=== PATIENT | male | born 1935 | race Caucasian/White ===

== ENCOUNTER 2016-11-03 22:05 | Inpatient (IN) | payer BC, MEDICARE ==
--- NOTE | 2016-11-03 23:01 | ED ---
Chest Pain HPI - General Chief Complaint: Chest Pain Stated Complaint: Fall/left rib pain Time Seen by Provider: 11/03/16 22:17 Source: patient Mode of arrival: wheelchair Limitations: no limitations - History of Present Illness Initial Comments: This patient is an 81-year-old man who presents to be evaluated for left-sided chest pain. The patient states this is been going on since "about a week after New Year'" and seems to be intermittent, occurring mainly when he moves or someone presses on his left chest. The pain is in the left midaxillary and left anterior chest over the lower ribs. The patient states that he did have a fall, after Laura and that he had injured his left shoulder in the fall, and has been having pain there. He did not note any pain at the time of the fall but states that this started a number of days after. The patient has not had any anginal symptoms, including no dyspnea, diaphoresis, nausea or vomiting , palpitations or syncope. The patient states that he has been having intermittent cough. MD Complaint: chest pain -: week(s) Onset: during rest Pain Location: left chest Severity: severe Quality: sharp Consistency: intermittent Improves With: remaining still Worsens With: palpation, movement Context: other (Fall) Other Symptoms: cough Treatments Prior to Arrival: none - Related Data Home Medications Medication Instructions Recorded Confirmed Atenolol [Tenormin] 50 mg PO DAILY 11/03/16 11/03/16 Lovastatin [Mevacor] 40 mg PO DAILY 11/03/16 11/03/16 glipiZIDE [Glucotrol] 10 mg PO BID 11/03/16 11/03/16 Allergies Allergy/AdvReac Type Severity Reaction Status Date / Time No Known Allergies Allergy Verified 11/03/16 23:50 Review of Systems ROS Statement: Those systems with pertinent positive or pertinent negative responses have been documented in the HPI. ROS Other: All systems not noted in ROS Statement are negative. Constitutional: Denies: fever, chills Respiratory: Reports: as per HPI, cough. Denies: dyspnea, wheezes, hemoptysis Cardiovascular: Reports: as per HPI, chest pain. Denies: palpitations, dyspnea on exertion, orthopnea, edema, syncope Gastrointestinal: Denies: abdominal pain, nausea, vomiting Genitourinary: Denies: dysuria, hematuria Musculoskeletal: Denies: back pain Skin: Denies: rash Neurological: Denies: headache, weakness EKG Findings - EKG Results: EKG: interpreted by HEYDID, sinus rhythm (With few PVCs, rate approximately 87 he p.m.) - Blocks, [place], Hypertrophy, ST Abn: Chamber hypertrophy or enlargement: left ventricular hypertrophy or enlargement (LVE) Repolarization changes or abnormalities: early repolarization due to LVH - [place], Pacemaker, Normal: Myocardial infarction: inferior [place] (old age indeterminate) Past Medical History Past Medical History: Diabetes Mellitus, Hyperlipidemia, Hypertension Additional Past Medical History / Comment(s): bladder cancer 1998, History of Any Multi-Drug Resistant Organisms: None Reported Past Surgical History: Bladder Surgery, Coronary Bypass/CABG Additional Past Surgical History / Comment(s): AAA Past Psychological History: No Psychological Hx Reported Smoking Status: Never smoker Past Alcohol Use History: None Reported Past Drug Use History: None Reported General Exam Limitations: no limitations General appearance: alert, in no apparent distress Head exam: Present: atraumatic, normocephalic Eye exam: Present: normal appearance. Absent: scleral icterus, conjunctival injection ENT exam: Present: normal exam Neck exam: Present: normal inspection, full ROM Respiratory exam: Present: rhonchi, chest wall tenderness. Absent: respiratory distress, wheezes, stridor, accessory muscle use, decreased breath sounds Cardiovascular Exam: Present: regular rate, normal rhythm, normal heart sounds. Absent: systolic murmur, diastolic murmur, rubs, gallop GI/Abdominal exam: Present: soft. Absent: distended, tenderness, guarding, rebound, mass Extremities exam: Present: normal inspection, normal capillary refill. Absent: pedal edema, calf tenderness Back exam: Present: normal inspection. Absent: CVA tenderness (R), CVA tenderness (L) Neurological exam: Present: alert Skin exam: Present: warm, dry, intact, normal color. Absent: rash, cyanosis, diaphoretic, erythema Course Vital Signs 11/03/16 11/04/16 11/04/16 22:10 01:51 02:14 Temperature 100.6 F H 100.4 F H Pulse Rate 87 80 83 Respiratory 18 26 H Rate Blood Pressure 171/74 139/63 O2 Sat by Pulse 92 L 88 L Oximetry 11/04/16 02:28 Temperature Pulse Rate 89 Respiratory Rate Blood Pressure O2 Sat by Pulse Oximetry Disposition Clinical Impression: Pneumonia, Elevated d-dimer Disposition: ADMITTED IP TO THIS HOSP Condition: Serious
[2016-11-03 23:17] LABS: Basophils # (A) 0.1 k/uL (0-0.2); Basophils % (A) 0 %; CH 30.8; CHCM 34.1; Eosinophils # (A) 0.1 k/uL (0-0.7); Eosinophils % (A) 1 %; HCT 43.4 % (39.0-53.0); HDW 2.34; HGB 14.6 gm/dL (13.0-17.5); Luc # (Auto) 0.16; Luc % (Auto) 1; Lymphocytes # (A) 0.8 k/uL (1.0-4.8); Lymphocytes % (A) 5 %; MCH 30.7 pg (25.0-35.0); MCHC 33.7 g/dL (31.0-37.0); MCV 90.9 fL (80.0-100.0); Mean Platelet Volume 7.7; Monocytes # (A) 0.7 k/uL (0-1.0); Monocytes % (A) 5 %; Neutrophils # (A) 14.4 k/uL (1.3-7.7); Neutrophils % (A) 88 %; RBC 4.77 m/uL (4.30-5.90); RDW 13.3 % (11.5-15.5); WBC 16.3 k/uL (3.8-10.6); WBC (Perox) 16.09
[2016-11-03 23:24] LABS: ALT 37 U/L (21-72); AST 20 U/L (17-59); Alkaline Phosphatase 59 U/L (38-126); Amylase <30 U/L (30-110); Anion Gap 10 mmol/L; Blood Urea Nitrogen 30 mg/dL (9-20); Calcium 9.4 mg/dL (8.4-10.2); Carbon Dioxide 23 mmol/L (22-30); Chloride 101 mmol/L (98-107); Glucose 266 mg/dL (74-99); Magnesium 1.6 mg/dL (1.6-2.3); Non-African American GFR(MDRD) 49 (>60 ml/min/1.73 sqM); Potassium 4.9 mmol/L (3.5-5.1); Sodium 134 mmol/L (137-145); Total Bilirubin 0.9 mg/dL (0.2-1.3); Total Protein 6.5 g/dL (6.3-8.2)
[2016-11-03 23:38] LABS: INR 1.1 (<1.1); Partial Thromboplastin Time 23.5 sec (22.0-30.0)
[2016-11-03 23:46] LABS: Creatine Kinase MB 0.4 ng/mL (0.0-2.4); Troponin I 0.024 ng/mL (0.000-0.034)
--- NOTE | 2016-11-03 23:48 | XR ---
EXAMINATION TYPE: XR chest 1V portable DATE OF EXAM: 11/03/2016 11:01 PM COMPARISON: None. HISTORY: History of chest pain, and left-sided rib pain after fall. TECHNIQUE: Single frontal view of the chest is obtained. FINDINGS: Mild chronic lung changes are suggested. There is suggestion of mild left-sided pleural effusion and left basilar lung infiltrates and atelectasis. There is no pneumothorax. There is mild cardiomegaly and postsurgical changes of sternotomy and tort uous thoracic aorta with atherosclerotic calcification. The cardiac silhouette size is within normal limits. There is slight irregularity in the left seventh rib posterior laterally and is questionable for acut e nondisplaced fracture. IMPRESSION: 1. Mild left-sided pleural effusion and left basilar lung infiltrate and atelectasis. 2. Cardiomegaly and sternotomy. 3. No definite pneumothorax is noted. 4. Questionable nondisplaced fracture of left seventh rib in the posterior lateral aspect.
[2016-11-04] MEDS ORDERED: LEVOFLOXACIN 750MG-D5W PMX 750 MG in DEXTROSE/WATER 1 150ML.BAG IVPB STA (00:50)
[2016-11-04] MEDS ORDERED: ENOXAPARIN 80 MG/0.8 ML SYRINGE SQ STA (01:05)
[2016-11-04] MEDS ORDERED: IPRATROPIUM-ALBUTEROL 3 ML NEB INHALATION STA (01:56)
[2016-11-04] MEDS ORDERED: ALBUTEROL NEBULIZED 2.5 MG/3 ML INHALATION PRN (02:11)
[2016-11-04] MEDS ORDERED: PNEUMONIA PROTOCOL UTILIZED 1 EACH MISC PO PRN (02:11)
[2016-11-04] MEDS ORDERED: SODIUM CHLORIDE 0.9% 1,000 ML IV SCH (02:15)
[2016-11-04] MEDS ORDERED: LEVOFLOXACIN 750MG-D5W PMX 750 MG in DEXTROSE/WATER 1 150ML.BAG IVPB SCH (02:15)
--- NOTE | 2016-11-04 02:35 | XR ---
EXAMINATION TYPE: XR ribs LT DATE OF EXAM: 11/03/2016 11:24 PM COMPARISON: 11/03/2016 chest x-ray HISTORY: History of fall complains of left upper anterior rib pain. TECHNIQUE: 3 radiographs of left ribs were obtained. FINDINGS: There is generalized osteopenia. Previously noted fracture changes of left seventh rib are not well demonstrated in this study probably due to generalized osteopenia. No pneumothorax is noted. Postsurgical changes of sternotomy are present. There is suggestion of mild left-sided pleural effusion and left basilar lung infiltrate. IMPRESSION: 1. Previously seen questionable left seventh rib fracture is not well demonstrated in these left rib radiographs. 2. Mild left-sided pleural effusion and left basilar lung infiltrates are suggested. 3. Sternotomy changes.
[2016-11-04] MEDS ORDERED: MORPHINE SULFATE 4 MG/ML SYRINGE IV PRN (03:10)
[2016-11-04] MEDS: HYDROcodone/APAP 5-325MG 1 EACH TAB PO PRN ×2 (03:45→08:37)
[2016-11-04 04:26] LABS: Glucose,Whole Blood 214 mg/dL (75-99)
[2016-11-04 07:02] LABS: Glucose,Whole Blood 191 mg/dL (75-99)
[2016-11-04] MEDS: ATENOLOL 50 MG TAB PO SCH (08:01)
[2016-11-04] MEDS ORDERED: glipiZIDE 10 MG TAB PO SCH (09:00)
[2016-11-04] MEDS ORDERED: ATORVASTATIN 20 MG TAB PO SCH (09:00)
[2016-11-04 10:28] LABS: Appearance,Urine Clear (Clear); Bilirubin,Urine Negative (Negative); Glucose,Urine (UA) 1+ (Negative); Ketones,Urine Negative (Negative); Leukocyte Esterase,Urine Negative (Negative); Mucus,Urine Rare /hpf; Nitrite,Urine Negative (Negative); Particle Count 5261; Protein,Urine 3+ (Negative); Specific Gravity,Urine 1.017 (1.001-1.035); Squamous Epithelial Cell,Urine 1 /hpf (0-4); UA Billing (MACRO vs. MICRO) MICRO; Urobilinogen,Urine <2.0 mg/dL (<2.0); WBC,Urine 1 /hpf (0-5)
--- NOTE | 2016-11-04 11:33 | NM ---
EXAMINATION TYPE: NM pul vent and perfuse DATE OF EXAM: 11/04/2016 11:11 AM COMPARISON: Radiographs 11/03/2016 HISTORY: 81-year-old male chest pain, cough, wheezing, rule out PE TECHNIQUE: Utilizing inhalation of 65.6 mCi Tc 99m DTPA aerosol and intravenous injection of 5.29 mC i of Tc 99m MAA, ventilation and perfusion images are acquired post injection in multiple projections . FINDINGS: Diminished matched ventilation and perfusion within the right apex and marked diminished ventilation and perfusion throughout the left lung. No clear mismatched perfusion defect seen. IMPRESSION: Unusual VQ scan pattern. Suspect low probability for pulmonary embolus. There is markedly reduced ever tilation and perfusion throughout the entire left lung possibly due to splinting and hypoventilation in the setting of left chest wall pain/rib fracture. Clinically correlate as to the need for further imaging evaluation.
[2016-11-04 12:33] LABS: Glucose,Whole Blood 178 mg/dL (75-99)
[2016-11-04] MEDS: SODIUM CHLORIDE 0.9% 1,000 ML IV SCH (16:27)
[2016-11-04 17:07] LABS: Glucose,Whole Blood 160 mg/dL (75-99)
[2016-11-04] MEDS ORDERED: Acetaminophen-Codeine 300-30mg TAB PO PRN ×2 (17:46)
[2016-11-04] MEDS: glipiZIDE 10 MG TAB PO SCH (18:06)
--- NOTE | 2016-11-04 19:35 | HP ---
DATE OF ADMISSION: 11/04/2016 PRESENTING COMPLAINT: Short of breath, cough. HISTORY OF PRESENTING COMPLAINT: This is a very pleasant 81-year-old patient of Dr. Cortés whose chronic stable medical conditions include diabetes, hypertension, hyperlipidemia, patient with bladder cancer in the past. Patient took a fall on his left shoulder and has seen Dr. Cortés who referred him to Dr. Lin. Dr. Lin ruled out any fracture. Since the fall the patient still continues to have pain in the left shoulder, not able to move his left arm. Patient now is not really feeling well. Decreased appetite low-grade fever, cough with phlegm. Found to have pneumonia. The patient also was told he has a rib fracture and point tenderness is reproducible. Patient's daughter at the bedside. REVIEW OF SYSTEMS: CONSTITUTIONAL: Fevers, weak and tired. HEENT: None. RESPIRATORY: As above. CARDIOVASCULAR: None. GASTROINTESTINAL: None. GENITOURINARY: None. MUSCULOSKELETAL: As above. DERMATOLOGICAL: None. HEMATOLOGICAL: None. LYMPHATIC: None. PSYCHIATRY: None. NEUROLOGICAL: None. Past medical history of diabetes type 2, hypertension, hyperlipidemia, bladder cancer. PAST SURGICAL HISTORY: Adenoidectomy, appendectomy, coronary artery bypass, tonsillectomy. SOCIAL HISTORY: Never smoked. No alcohol, retired, . Family history of esophageal cancer. HOME MEDICATIONS: 1. Mevacor 80 mg q.h.s. 2. Glucotrol 10 mg b.i.d. 3. Tenormin 50 mg daily. 4. Aspirin 325 mg daily. ALLERGIES: None. On examination, vitals on presentation: Temperature 100.6, pulse 87, respirations 18 to 26, blood pressure 135/63, pulse ox 88% on 3-L. GENERAL APPEARANCE: Average build, sitting up, tired appearing. EYES: Pupils equal. Conjunctivae normal. HEENT: External appearance of nose and ears normal. NECK: JVD not raised. Mass not palpable. RESPIRATORY: Effort normal. LUNGS: Slightly decreased breath sounds on the left side. CARDIOVASCULAR: First and second sounds normal. No edema. ABDOMEN: Soft, nontender. Liver and spleen not palpable. LYMPHATIC: No lymph nodes palpable in neck or axillae. PSYCHIATRY: Alert and oriented x3. Mood and affect normal. NEUROLOGICAL: Pupils equal. Cranial nerves grossly intact. Power and sensation grossly intact. MUSCULOSKELETAL: Limited range of motion of the left shoulder. He also has got point tenderness in the lateral clavicular line around the seventh rib area. PSYCHIATRY: Alert and oriented x3. Mood and affect normal. INVESTIGATIONS: White count 16.3, hemoglobin 14.6, d-dimer 6.85, potassium 4.9, BUN 30, creatinine 1.39. Accu-Cheks are noted. Urine protein 3+. Chest x-ray, possible left-sided infiltrate. ASSESSMENT: 1. Left lower lobe pneumonia, probably from splinting. 2. Suspect left 7th rib fracture, undisplaced. 3. Suspect left shoulder rotator cuff injury from fall. Fracture was ruled out by follow up with Dr. Lin in the office. 4. Possibly chronic kidney disease, stage III from diabetic nephropathy. 5. Essential hypertension. 6. Hyperlipidemia. PLAN: We will hydrate the patient and see if the renal function improves. We will also do a renal ultrasound. Patient will be given IV antibiotics. I spoke to Fatuma from [facility]. They were considering doing physical therapy if symptoms did not improve. I really cannot give NSAIDs because of the renal failure. The Stout made him a bit loopy that he received. Will try Tylenol 3 around the clock. Other medication and treatment plan to continue. Care was discussed with the patient and daughter at the bedside.
--- NOTE | 2016-11-04 20:01 | US ---
EXAMINATION TYPE: US kidneys/renal and bladder DATE OF EXAM: 11/04/2016 4:49 PM COMPARISON: NONE CLINICAL HISTORY: renal failure, history of bladder cancer. EXAM MEASUREMENTS: Right Kidney: 12.4 x 5.7 x 5.7cm Left Kidney: 11.2 x 5.8 x 5.2cm ANATOMY: Right Kidney: inferior pole partially obscured by bowel gas Left Kidney: inferior pole obscured by bowel gas Bladder: Negative as seen. There is no evidence for hydronephrosis at this point in time. No nephrolithiasis is seen. No john s are identified. The urinary bladder is anechoic. Bilateral ureteral jets are seen. IMPRESSION: NEGATIVE FOR OBSTRUCTIVE UROPATHY.
[2016-11-04 21:37] LABS: Glucose,Whole Blood 128 mg/dL (75-99)
[2016-11-04] MEDS ORDERED: ENOXAPARIN 80 MG/0.8 ML SYRINGE SQ SCH (22:00)
[2016-11-05] MEDS: SODIUM CHLORIDE 0.9% 1,000 ML IV SCH ×2 (00:39→14:07)
[2016-11-05] MEDS ORDERED: LEVOFLOXACIN 750MG-D5W PMX 750 MG in DEXTROSE/WATER 1 150ML.BAG IVPB SCH (06:00)
[2016-11-05 07:22] LABS: Glucose,Whole Blood 138 mg/dL (75-99)
[2016-11-05] MEDS: glipiZIDE 10 MG TAB PO SCH (08:04)
[2016-11-05] MEDS: ATENOLOL 50 MG TAB PO SCH (08:04)
[2016-11-05 08:18] VITALS: BP 183/84; PULSE 63; RESP 19; TEMP 98.2
[2016-11-05] MEDS ORDERED: ENOXAPARIN 40 MG/0.4 ML SYRINGE SQ SCH (09:00)
[2016-11-05 09:25] LABS: Anion Gap 7 mmol/L; Blood Urea Nitrogen 28 mg/dL (9-20); Calcium 8.9 mg/dL (8.4-10.2); Carbon Dioxide 24 mmol/L (22-30); Chloride 103 mmol/L (98-107); Glucose 148 mg/dL (74-99); Non-African American GFR(MDRD) 53 (>60 ml/min/1.73 sqM); Potassium 4.9 mmol/L (3.5-5.1); Sodium 134 mmol/L (137-145)
[2016-11-05 11:55] LABS: Glucose,Whole Blood 167 mg/dL (75-99)
[2016-11-05] MEDS ORDERED: ATORVASTATIN 20 MG TAB PO SCH (21:00)
--- NOTE | 2016-11-06 12:38 | DS ---
DATE OF ADMISSION: 11/04/2016 DATE OF DISCHARGE: 11/05/2016 FINAL DIAGNOSES: 1. Left-sided pneumonia, suspect gram-negative organism. 2. Left rib fracture from a recent fall, nondisplaced. 3. Possible rotator cuff injury from recent fall. 4. Chronic kidney disease, stage III, from diabetic nephropathy and possible hypertensive nephrosclerosis. 5. Essential hypertension. 6. Hyperlipidemia. HOSPITAL COURSE: This patient presented with cough and sputum, found to have left-sided pneumonia. Patient recently had a fall to the left shoulder. He had seen Dr. Lin. Fracture was ruled out but it looked like the patient had a rotator cuff injury. He has unable to move his left arm. The patient also got a left rib fracture. Pulmonary symptoms are greatly improved. I spoke to Dr. Lin's office. The patient is to have outpatient physical therapy. Symptoms are greatly improved. Care was discussed with the patient at discharge. On exam, lungs are clear. Cardiovascular, first and second heart sounds are normal. DISCHARGE MEDICATIONS: 1. Tenormin 50 mg p.o. daily. 2. Mevacor 80 mg p.o. at bedtime . 3. Glucotrol 10 mg p.o. b.i.d. 4. Tylenol No. 3, 1 tablet orally every 6 p.r.n. for pain. 5. Aspirin 81 mg day. 6. Ceftin 500 mg p.o. daily 10 tablets. Follow up with Dr. Cortés on 11/18/2016, follow up with Dr. Lin on 11/09/2016. Outpatient physical therapy with Dr. Lin's office. DISCHARGE TIME: More than 35 minutes.
== END 2016-11-05 14:10 | disposition home or self-care (01) | DRG 178 ==
LOC: EC 22:05 → 4MS4W 11-04 02:41
PROVIDERS: ADMIT Hospitalist; ATTEND Hospitalist
DX: J15.6 Pneumonia due to other Gram-negative bacteria (principal); S22.32XA Fracture of one rib, left side, initial encounter for closed fracture; E11.21 Type 2 diabetes mellitus with diabetic nephropathy; N18.3 Chronic kidney disease, stage 3 (moderate); I12.9 Hypertensive chronic kidney disease with stage 1 through stage 4 chronic kidney disease, or unspecified chronic kidney disease; S46.002A Unspecified injury of muscle(s) and tendon(s) of the rotator cuff of left shoulder, initial encounter; I25.10 Atherosclerotic heart disease of native coronary artery without angina pectoris; E11.22 Type 2 diabetes mellitus with diabetic chronic kidney disease; E78.5 Hyperlipidemia, unspecified; I71.4 Abdominal aortic aneurysm, without rupture; Z79.82 Long term (current) use of aspirin; Z79.84 Long term (current) use of oral hypoglycemic drugs; Z79.899 Other long term (current) drug therapy; Z85.51 Personal history of malignant neoplasm of bladder; Z95.1 Presence of aortocoronary bypass graft; W19.XXXA Unspecified fall, initial encounter
CPT/HCPCS: 36415; 71010; 76770; 78582; 80048; 80053; 81001; 82150; 82550; 82553; 83690; 83735; 84484; 85025; 85379; 85610; 85730; 87040; 87086; 93005; 94640; 96365; 96372; 99285

== ENCOUNTER → 2017-08-23 | Outpatient (CLI) | payer MEDICARE ==
[2017-08-23 12:44] LABS: Appearance,Urine Clear (Clear); Bilirubin,Urine Negative (Negative); Glucose,Urine (UA) 2+ (Negative); Ketones,Urine Negative (Negative); Leukocyte Esterase,Urine Negative (Negative); Mucus,Urine Rare /hpf; Nitrite,Urine Negative (Negative); PH, Urine 6.5 (5.0-8.0); Particle Count 933; Protein,Urine 2+ (Negative); UA Billing (MACRO vs. MICRO) MICRO; Urobilinogen,Urine <2.0 mg/dL (<2.0); WBC,Urine 1 /hpf (0-5)
[2017-08-23 12:51] LABS: Potassium 5.4 mmol/L (3.5-5.1)
[2017-08-23 12:58] LABS: Aty Lym Flag Slight; CH 30.8; CHCM 32.5; HDW 2.48; MCH 30.2 pg (25.0-35.0); MCHC 31.7 g/dL (31.0-37.0); MCV 95.2 fL (80.0-100.0); Mean Platelet Volume 7.8; RBC 4.62 m/uL (4.30-5.90); RDW 13.2 % (11.5-15.5); WBC 7.6 k/uL (3.8-10.6)
[2017-08-23 13:40] LABS: Add Differential Manual Differential
[2017-08-23 13:42] LABS: Band Neutrophils % 1 %; Manual Review Performed; Nucleated Red Blood Cells 0 /100 WBC (0-0); Total Cells Counted 100
== END | disposition home or self-care (01) ==
LOC: LABPAT 12:11
PROVIDERS: ATTEND Surgery
DX: Z01.812 Encounter for preprocedural laboratory examination (principal); M79.605 Pain in left leg
CPT/HCPCS: 36415; 80051; 81001; 82565; 84520; 85025

== ENCOUNTER → 2017-10-03 | Outpatient (CLI) | payer MEDICARE ==
[2017-10-03 14:23] LABS: Potassium 5.1 mmol/L (3.5-5.1)
[2017-10-03 14:26] LABS: Aty Lym Flag Slight; CH 30.5; CHCM 32.4; HCT 42.5 % (39.0-53.0); HDW 2.43; HGB 13.7 gm/dL (13.0-17.5); MCH 30.6 pg (25.0-35.0); MCHC 32.3 g/dL (31.0-37.0); MCV 94.6 fL (80.0-100.0); Mean Platelet Volume 8.8; RDW 14.2 % (11.5-15.5); WBC 6.6 k/uL (3.8-10.6)
[2017-10-03 14:39] LABS: Appearance,Urine Clear (Clear); Bilirubin,Urine Negative (Negative); Glucose,Urine (UA) Negative (Negative); Ketones,Urine Negative (Negative); Leukocyte Esterase,Urine Negative (Negative); Nitrite,Urine Negative (Negative); Particle Count 332; Protein,Urine 1+ (Negative); RBC,Urine <1 /hpf (0-5); Specific Gravity,Urine 1.005 (1.001-1.035); UA Billing (MACRO vs. MICRO) MICRO; Urobilinogen,Urine <2.0 mg/dL (<2.0); WBC,Urine <1 /hpf (0-5)
[2017-10-03 15:50] LABS: Add Differential Manual Differential
[2017-10-03 15:53] LABS: Band Neutrophils % 1 %; Manual Review Performed; Nucleated Red Blood Cells 0 /100 WBC (0-0); Total Cells Counted 100
== END | disposition home or self-care (01) ==
LOC: LABPAT 13:46
PROVIDERS: ATTEND Surgery
DX: Z01.812 Encounter for preprocedural laboratory examination (principal); I70.213 Atherosclerosis of native arteries of extremities with intermittent claudication, bilateral legs
CPT/HCPCS: 36415; 80051; 81001; 82565; 84520; 85025

== ENCOUNTER 2017-10-04 09:49 | Day surgery (SDC) | payer MEDICARE ==
[2017-09-30 13:08] VITALS: BMI 21.7
[~2017-10-04 09:49] MED LIST: SODIUM CHLORIDE 0.9% 1,000 ML in EMPTY BAG 1 BAG IV ONE
[2017-10-04 10:24] VITALS: RESP 16; TEMP 98.2
[2017-10-04 10:26] LABS: Glucose,Whole Blood 130 mg/dL (75-99)
[2017-10-04] MEDS ORDERED: SODIUM CHLORIDE 0.9% 1,000 ML IV SCH (12:30)
[2017-10-04] MEDS ORDERED: LIDOCAINE 2% INJ 20 MG/ML SQ ONE (12:34)
[2017-10-04] MEDS ORDERED: MIDAZOLAM 2 MG/2 ML VIAL IVP ONE (12:35)
[2017-10-04] MEDS ORDERED: IODIXANOL 320 MG/ML 100 ML INTRAARTER ONE (12:55)
[2017-10-04] MEDS ORDERED: traMADol 50 MG TAB PO PRN (13:08)
[2017-10-04] MEDS ORDERED: hydrALAZINE HCL 20 MG/ML 1 ML VIAL ONE (13:13)
[2017-10-04] MEDS ORDERED: hydrALAZINE HCL 20 MG/ML 1 ML VIAL IVP STA (13:30)
[2017-10-04] MEDS ORDERED: HYDROcodone/APAP 5-325MG 1 EACH TAB PO STA (13:30)
--- NOTE | 2017-10-04 13:41 | IR ---
EXAMINATION TYPE: IR angio abdominal w runoff DATE OF EXAM: 10/04/2017 COMPARISON: NONE HISTORY: Peripheral vascular occlusive disease. Fluoroscopy was provided to the referring clinician. See dictated report from cardiology.
[2017-10-04 16:56] VITALS: PULSE 56
[2017-10-04 17:37] VITALS: BP 155/65
[2017-10-04] MEDS ORDERED: glipiZIDE 10 MG TAB PO SCH (21:00)
[2017-10-04] MEDS ORDERED: ATENOLOL 25 MG TAB PO SCH (21:00)
[2017-10-04] MEDS ORDERED: ATORVASTATIN 20 MG TAB PO SCH (21:00)
[2017-10-05] MEDS ORDERED: ASPIRIN 325 MG TAB PO SCH (09:00)
[2017-10-05] MEDS ORDERED: CHOLECALCIFEROL 1,000 UNIT TAB PO SCH (12:00)
--- NOTE | 2017-10-21 10:18 | P.OP ---
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 He underwent arterial dopplers which demonstrated severe bilateral LE disease. He also started experiencing pain at night. Prior to rest pain he stated that he could ambulate about 1 block before getting calf pain. Operative Findings: Aorta: No hemodynamically significant disease Iliac: Right RIKKI patent with mild athersclerotic disease, Internal iliac artery patent with mild disease, external iliac with mild disease without hemodynamically significance. Left common, internal and external iliac artery patent without significant disease. Femoral: Bilateral common femoral arteries are patent with evidence of previous bypasses, bilateral superficial femoral arteries are occluded, patent profunda bilaterally. Large amount of collaterals throughout mid thigh without reconstitution until below knee peroneal on the right. Popliteal: right popliteal artery occlusion, left popliteal artery filling noted with collateral vessels Tibial-peroneal trunk: right TPT occluded with only takeoff of peroneal noted. Sparse filling of anterior and posterior arteries. One vessel runoff to the ankle which is the peroneal artery. There is collateral filling of the anterior tibial artery at the foot. Left TPT with moderate disease but with three vessel takeoff. anterior tibial, posterior tibial arteries with moderate to severe athersclerotic disease to the ankle which is difficult to delineate. Description of Procedure: After written and informed consent was obtained from the patient and all risks, benefits were described. The patient was brought to the photo lab specialist and laid in a supine position. The area of the groins were prepped and draped in the usual fashion. A timeout was performed with all parties in agreement. Utilizing ultrasound the left common femoral artery was visualized and shown to be patent. Seldinger technique was then used and a 5 malay sheath was placed. This was followed with a .035 glidewire and then a pigtail catheter which was placed into the aorta. Aortogram followed by selective right lower extremity angiograms were obtained after up and over catheter was placed. Once completed the catheter was removed and selective left lower extremity angiogram was obtained via existing sheath. All guidewires and sheaths were removed and pressure was placed for hemostasis. The access site was cleansed and dressing was placed. The patient tolerated the procedure well and was sent to recovery. Patient will need femoral to anterior tibial or peroneal artery bypass with cryovein on the right and femoral-tibial bypass on the left.
== END 2017-10-04 19:43 | disposition home or self-care (01) ==
LOC: CATHCVL 09:49 → 6SEL 12:58 → CATHCVL 12:58
PROVIDERS: ATTEND Surgery
DX: I77.9 Disorder of arteries and arterioles, unspecified (principal); I70.221 Atherosclerosis of native arteries of extremities with rest pain, right leg; I71.4 Abdominal aortic aneurysm, without rupture; K37 Unspecified appendicitis; C67.9 Malignant neoplasm of bladder, unspecified; E11.9 Type 2 diabetes mellitus without complications; I51.9 Heart disease, unspecified; Z95.1 Presence of aortocoronary bypass graft; Z79.84 Long term (current) use of oral hypoglycemic drugs; Z79.899 Other long term (current) drug therapy; Z87.891 Personal history of nicotine dependence
CPT/HCPCS: 36246; 75625; 75716; C1769 ×4; C1894; J2001; J2250; J0360; Q9967

== ENCOUNTER → 2017-11-01 | Outpatient (CLI) | payer MEDICARE ==
[2017-11-01 13:35] LABS: Partial Thromboplastin Time 23.3 sec (22.0-30.0); Prothrombin Time 10.2 sec (9.0-12.0)
[2017-11-01 13:47] LABS: HCT 39.4 % (39.0-53.0); HGB 12.8 gm/dL (13.0-17.5); MCH 30.2 pg (25.0-35.0); MCHC 32.6 g/dL (31.0-37.0); MCV 92.6 fL (80.0-100.0); Mean Platelet Volume 7.9; Platelet Count 125 k/uL (150-450); RBC 4.25 m/uL (4.30-5.90); WBC 8.3 k/uL (3.8-10.6)
[2017-11-01 13:51] LABS: Potassium 5.3 mmol/L (3.5-5.1)
[2017-11-01 13:53] LABS: Appearance,Urine Clear (Clear); Bilirubin,Urine Negative (Negative); Blood,Urine Negative (Negative); Color,Urine Yellow; Glucose,Urine (UA) Negative (Negative); Ketones,Urine Negative (Negative); Leukocyte Esterase,Urine Negative (Negative); Mucus,Urine Rare /hpf; Nitrite,Urine Negative (Negative); Protein,Urine 2+ (Negative); Specific Gravity,Urine 1.013 (1.001-1.035); Urobilinogen,Urine <2.0 mg/dL (<2.0); WBC,Urine 1 /hpf (0-5)
[2017-11-01 14:15] LABS: Eosinophils # (M) 0.25 k/uL (0-0.7); Lymphocytes # (M) 2.08 k/uL (1.0-4.8); Monocytes # (M) 0.91 k/uL (0-1.0); Neutrophils # (M) 5.06 k/uL (1.3-7.7); Neutrophils % (M) 61 %; Nucleated Red Blood Cells 0 /100 WBC (0-0); Total Cells Counted 100
== END | disposition home or self-care (01) ==
LOC: LABPAT 11:54
PROVIDERS: ATTEND Surgery
DX: Z01.818 Encounter for other preprocedural examination (principal); R94.31 Abnormal electrocardiogram [ECG] [EKG]; R00.1 Bradycardia, unspecified; I70.213 Atherosclerosis of native arteries of extremities with intermittent claudication, bilateral legs; Z79.01 Long term (current) use of anticoagulants; Z01.812 Encounter for preprocedural laboratory examination
CPT/HCPCS: 36415; 80051; 81001; 82565; 82947; 84520; 85025; 85610; 85730; 86850; 86900; 86901; 93005

== ENCOUNTER 2017-11-04 09:51 | Inpatient (IN) | payer MEDICARE ==
[2017-11-01 10:11] VITALS: BMI 22.0
[~2017-11-04 09:51] MED LIST changes: +HYDROmorphone 0.5 MG/0.5 ML SYRINGE IVP PRN; +MIDAZOLAM 2 MG/2 ML VIAL IV PRN; +MORPHINE SULFATE 4 MG/ML SYRINGE IV PRN; +NITROGLYCERIN-D5W PMX 50 MG in DEXTROSE/WATER 1 250ML.BAG IV SCH; +PHENYLEPHRINE 40 MG in SODIUM CHLORIDE 0.9% 250 ML IV SCH; -SODIUM CHLORIDE 0.9% 1,000 ML in EMPTY BAG 1 BAG IV ONE; +ceFAZolin IN SWFI 2 GM/20 ML SYRINGE IVP ONE
[2017-11-04 10:37] LABS: Glucose,Whole Blood 170 mg/dL (75-99)
[2017-11-04] MEDS: LACTATED RINGERS 1,000 ML IV SCH ×2 (10:47→23:37)
[2017-11-04] MEDS ORDERED: LIDOCAINE 1% 20 ML VIAL (10MG/ML) FOR IV START INTRADERMA ONE (10:48)
[2017-11-04] MEDS ORDERED: ONDANSETRON 4 MG/2 ML VIAL IVP ONE (10:50)
[2017-11-04] MEDS ORDERED: diphenhydrAMINE 50 MG/ML 1 ML VIAL ONE (12:46)
[2017-11-04] MEDS ORDERED: PHENYLEPHRINE-0.9% NACL SYG 1 MG/10 ML SYRINGE ONE (12:46)
[2017-11-04] MEDS ORDERED: KETAMINE 10 MG/ML 20 ML VIAL ONE (12:46)
[2017-11-04] MEDS ORDERED: GLYCOPYRROLATE 0.2 MG/ML 2 ML VIAL ONE (12:46)
[2017-11-04] MEDS ORDERED: HEPARIN SODIUM,PORCINE 10,000 UNIT/ML 1 ML VIAL ONE (12:46)
[2017-11-04] MEDS ORDERED: fentaNYL (PF) 50 MCG/ML 2 ML AMP ONE (12:46)
[2017-11-04] MEDS ORDERED: PROPOFOL 10 MG/ML 20 ML VIAL IV ONE (12:46)
[2017-11-04] MEDS ORDERED: MORPHINE SULFATE (PF) 0.3 MG/0.3 ML SYR ONE (12:46)
[2017-11-04] MEDS ORDERED: MIDAZOLAM 2 MG/2 ML VIAL ONE (12:46)
[2017-11-04] MEDS ORDERED: SODIUM CHLORIDE 0.9% 500 ML with HEPARIN SODIUM,PORCINE 5,000 UNIT IV ONE ×2 (13:23)
[2017-11-04] MEDS ORDERED: GELATIN SPONGE,ABSORB (LARGE) 1 EACH SPONGE TOPICAL ONE (13:23)
[2017-11-04] MEDS ORDERED: THROMBIN (BOVINE) 5,000 UNIT VIAL TOPICAL ONE ×2 (13:23→17:13)
[2017-11-04] MEDS ORDERED: LACTATED RINGERS 1,000 ML IV ONE ×2 (15:38→17:43)
[2017-11-04] MEDS ORDERED: IOHEXOL 350 MG/ML 50ML BOTTLE IRRIGATION ONE (16:57)
[2017-11-04] MEDS ORDERED: GELATIN SPONGE,ABSORB (SMALL) 1 EACH SPONGE TOPICAL ONE (17:13)
[2017-11-04 18:08] LABS: Glucose,Whole Blood 114 mg/dL (75-99)
[2017-11-04] MEDS ORDERED: HYDROcodone/APAP 5-325MG 1 EACH TAB PO PRN (18:16)
[2017-11-04] MEDS ORDERED: MORPHINE SULFATE 2 MG/ML SYRINGE IVP PRN (18:16)
[2017-11-04 18:46] LABS: HCT 34.1 % (39.0-53.0); MCHC 32.4 g/dL (31.0-37.0); MCV 92.4 fL (80.0-100.0); Mean Platelet Volume 7.6; Platelet Count 173 k/uL (150-450); RBC 3.68 m/uL (4.30-5.90); RDW 13.1 % (11.5-15.5); WBC 8.4 k/uL (3.8-10.6)
[2017-11-04 19:38] LABS: Band Neutrophils % 2 %; Basophils # (M) 0.08 k/uL (0-0.2); Eosinophils # (M) 0.17 k/uL (0-0.7); Lymphocytes # (M) 2.94 k/uL (1.0-4.8); Monocytes # (M) 0.08 k/uL (0-1.0); Neutrophils % (M) 59 %; Nucleated Red Blood Cells 0 /100 WBC (0-0); Total Cells Counted 100
[2017-11-04] MEDS: ceFAZolin IN SWFI 2 GM/20 ML SYRINGE IVP SCH (20:20)
[2017-11-04] MEDS: ATORVASTATIN 20 MG TAB PO SCH (20:20)
[2017-11-04] MEDS: ATENOLOL 25 MG TAB PO SCH (20:20)
[2017-11-04] MEDS: glipiZIDE 10 MG TAB PO SCH (20:20)
[2017-11-04] MEDS: SODIUM CHLORIDE 0.9% 1,000 ML IV SCH (20:33)
[2017-11-04 21:10] LABS: Glucose,Whole Blood 176 mg/dL (75-99)
[2017-11-04] MEDS: HEPARIN SODIUM,PORCINE 5,000 UNIT/ML 1 ML VIAL SQ SCH (23:34)
[2017-11-05] MEDS: SODIUM CHLORIDE 0.9% 1,000 ML IV SCH ×2 (04:28→08:55)
[2017-11-05] MEDS: ceFAZolin IN SWFI 2 GM/20 ML SYRINGE IVP SCH (04:35)
[2017-11-05 06:25] LABS: Glucose,Whole Blood 209 mg/dL (75-99)
--- NOTE | 2017-11-05 07:28 | P.OP ---
Date of Procedure: 11/04/17 Preoperative Diagnosis: Right lower extremity critical limb ischemia with heel wounds- Woody 5 Postoperative Diagnosis: Right lower extremity critical limb ischemia- Rangel 5 Procedure(s) Performed: 1. Right femoral-peroneal artery Insitu greater saphenous vein bypass 2. Right femoral and tibial-peroneal trunk endarterectomy 3. Selective right lower extremity angiogram Implants: none Anesthesia: spinal Surgeon: Leno Aguilar Podiatric Physician #1: Lorenzo Jones Estimated Blood Loss (ml): 500 IV fluids (ml): 3,000 Urine output (ml): 500 Pathology: none sent Condition: stable Disposition: floor Indications for Procedure: 82 yo male with history of bilateral lower extremity claudication as well as bilateral femoral-popliteal artery above knee bypasses presented to the office with complaints of bilateral lower extremity pain right worse than left. He had undergone aortogram with runoffs which demonstrated severe occlusive disease bilaterally. He has occluded bilateral SFA's and right lower extremity demonstrated only one vessel runoff to the ankle. Due to his significant rest pain and newly developed heel and foot ulcers on his right he presents today for a below knee bypass. Operative Findings: Severe calcification and occlusion of right femoral and popliteal artery segments. Right peroneal artery was soft distal to bifurcation with good back bleeding. Description of Procedure: After written and informed consent was obtained from the patient and all risks, benefits, and complications were reviewed with the patient and his family in full detail, the patient was brought to the operative suite and laid in a supine position. The areas of his abdomen and right lower extremity were prepped and draped after appropriate anesthesia was provided per the anesthesiologist. A time-out was performed in usual fashion with all parties in agreement. Antibiotics were administered prior to any incisions. An incision was created at the medial aspect of the lower leg approximately two finger-breaths below the knee over the marked greater saphenous vein. The vein was located and dissected free. Further dissection was carried medial to the vein, and deepened to the fascia which was incised. The tibial peroneal trunk was dissected free sharply and extended proximally to the popliteal artery and distally to the posterior tibial and peroneal arteries. Upon dissection the popliteal artery was found to be hard and full of plaque as well as the posterior tibial artery. Further dissection was carried around the peroneal artery which was soft and patent below the bifurcation. Control with vessel loops was obtained proximally and distally. Attention was then placed the groin and femoral artery dissection. An incision overlying the greater saphenous vein was created at the anterior thigh just below the groin and the vein was located and dissected free. This was then dissected proximally to the sapheno-femoral junction and the femoral artery was located and dissected free both proximally to the inguinal ligament and distally to the superficial femoral artery. Proximal and distal control was obtained of the common femoral, superficial femoral and profunda arteries. During dissection the previous bypass graft was visualized and ligated with thoughts of using for anastomosis but the femoral artery at the bypass had dense calcification and occlusion so therefore the decision was made to make an arteriotomy and endarterectomy of the femoral artery. Prior to endarterectomy the vein was dissected free along it's entirety distally for the insitu bypass. Once dissected free and branches were ligated attention was placed to the proximal anastomosis. The patient was administered 6000 units of heparin and followed with ACT's. The greater saphenous vein was then ligated at the sapheno-femoral junction which was sutured closed with 5-0 prolene suture. The proximal vein was spatulated and brought over to the artery with sufficient length noted. Arteriotomy was created at the common femoral artery and extended with Morris Arreola scissors. There was dense plaque noted within the artery extending proximally past the previous bypass and therefore endarterectomy was performed with removal of plaque which improved the inflow. Good pulsatile inflow was noted as well as brisk back bleeding from the profunda artery. Anastomosis was then performed using 6-0 prolene suture. Once completed attention was placed to removing the valves. Utilizing the LeMaitre valvulotome device the valves were removed throughout the greater saphenous vein which demonstrated pulsatile flow throughout. Attention was then placed to the distal anastomosis at the peroneal artery. Arteriotomy with an 11 blade scalpel was created after the vessel was controlled and extended with Morris Arreola scissors. Upon opening the artery there was dense plaque encountered at the proximal aspect of the artery and therefore endarterectomy was performed at the tibial-peroneal trunk. There was brisk backbleeding from the peroneal artery with minimal backbleeding noted from the posterior tibial artery. An end to side anastomosis was then created with 6-0 prolene suture in usual fashion. Once completed, control was released demonstrating pulsatile flow into the peroneal artery. The patient had multiphasic doppler signals at the dorsalis pedis artery after bypass. Completion angiogram was then obtained. Utilizing an angiocatheter the proximal aspect of the bypass was accessed and angiogram of the bypass was obtained distally at the anastomosis and to the foot. There was good brisk flow through the bypass with peroneal artery patent to the ankle with collateral filling to the foot. The catheter was then removed and vein was repaired with 6-0 prolene suture. Surgical incisions were then copiously irrigated with antibiotic solutions and hemostasis was assisted with gelfoam and thrombin. There was minimal oozing noted from inflamed tissues in the groin which were controlled with electrocautery. The incisions were then closed in multilayer fashion at the groin and distal leg and skin was closed with munir throughout. The patient tolerated the procedure well and was sent to PACU for recovery. The patient had multiphasic signals at the DP and PT at the conclusion of the procedure as well as good capillary refill. Foot was warm and pink.
[2017-11-05] MEDS: HEPARIN SODIUM,PORCINE 5,000 UNIT/ML 1 ML VIAL SQ SCH ×3 (08:49→23:54)
[2017-11-05] MEDS: ATENOLOL 25 MG TAB PO SCH ×2 (08:50→21:24)
[2017-11-05] MEDS: CHOLECALCIFEROL 1,000 UNIT TAB PO SCH (08:50)
[2017-11-05] MEDS: ASPIRIN 325 MG TAB PO SCH (08:50)
[2017-11-05] MEDS: DOCUSATE 100 MG CAP PO SCH (08:50)
[2017-11-05] MEDS: glipiZIDE 10 MG TAB PO SCH ×2 (08:50→17:31)
--- NOTE | 2017-11-05 09:06 | P.PN ---
Progress Note - Text Progress Note Date: 11/05/17 Subjective: Mild soreness in the operated leg. Objective: Vital signs stable. Afebrile. Minimal swelling in the leg. Mild drainage from the incision. No fluid collection behind the knee or in the groin palpable. Foot toasty warm.. Assessment: Excellent first day post right fem-pop peroneal in situ bypass with endarterectomy of the peroneal and femoral arteries. Plan: Limited bending of the right knee. Patient may get up to the bathroom and to eat but otherwise she'll maintain leg elevation. KM Arrington.
[2017-11-05 11:51] LABS: Glucose,Whole Blood 240 mg/dL (75-99)
[2017-11-05] MEDS: INSULIN ASPART 100 UNIT/ML 1 ML 10 ML VIAL SQ SCH ×3 (12:11→21:24)
--- NOTE | 2017-11-05 16:10 | FL ---
EXAMINATION TYPE: FL guidance operating room DATE OF EXAM: 11/04/2017 FLUOROSCOPY Fluoroscopy time of 45 seconds was used during intervention for right lower extremity occlusion. 3 i mage/s document/s the procedure. Refer to vascular surgery procedure note for complete findings and impression.
[2017-11-05 17:20] LABS: Glucose,Whole Blood 155 mg/dL (75-99)
[2017-11-05 20:21] LABS: Hemoglobin A1C 7.2 % (4.0-6.0)
[2017-11-05 21:04] LABS: Glucose,Whole Blood 194 mg/dL (75-99)
[2017-11-05] MEDS: ACETAMINOPHEN TAB 325 MG TAB PO PRN (21:23)
[2017-11-05] MEDS: ATORVASTATIN 20 MG TAB PO SCH (21:24)
[2017-11-06 05:51] LABS: Glucose,Whole Blood 163 mg/dL (75-99)
[2017-11-06] MEDS: glipiZIDE 10 MG TAB PO SCH ×2 (06:50→16:36)
[2017-11-06] MEDS: INSULIN ASPART 100 UNIT/ML 1 ML 10 ML VIAL SQ SCH ×4 (06:50→21:28)
[2017-11-06] MEDS: DOCUSATE 100 MG CAP PO SCH (08:49)
[2017-11-06] MEDS: CHOLECALCIFEROL 1,000 UNIT TAB PO SCH (08:49)
[2017-11-06] MEDS: ASPIRIN 325 MG TAB PO SCH (08:49)
[2017-11-06] MEDS: ATENOLOL 25 MG TAB PO SCH ×2 (08:49→21:28)
[2017-11-06] MEDS: HEPARIN SODIUM,PORCINE 5,000 UNIT/ML 1 ML VIAL SQ SCH ×3 (08:49→21:28)
[2017-11-06] MEDS: ACETAMINOPHEN TAB 325 MG TAB PO PRN ×2 (09:30→19:18)
[2017-11-06 10:48] LABS: HCT 24.5 % (39.0-53.0); MCH 30.5 pg (25.0-35.0); MCHC 33.4 g/dL (31.0-37.0); MCV 91.2 fL (80.0-100.0); Mean Platelet Volume 8.2; Platelet Count 167 k/uL (150-450); RBC 2.68 m/uL (4.30-5.90); RDW 13.4 % (11.5-15.5); WBC 9.5 k/uL (3.8-10.6)
[2017-11-06 10:53] LABS: HGB 8.2 gm/dL (13.0-17.5)
[2017-11-06 11:48] LABS: Glucose,Whole Blood 277 mg/dL (75-99)
--- NOTE | 2017-11-06 11:57 | P.PN ---
Progress Note - Text Progress Note Date: 11/06/17 Subjective: Patient has mild discomfort in his incision site. His leg otherwise feels well. He feels a bit weak when he stands. Objective: Foot is pink and warm. Incision is intact. There is some serous oozing in various areas of the incision. There is no incisional swelling or induration. Hemoglobin down to 8.2. Vital signs stable and urine output is good. Assessment: Slow progress post right fem-pop peroneal in situ. Patient still feels he is a bit week for going home where he has minimal assistance. Plan: He will continue to progress activity as tolerated. He will continue to keep the leg elevated when not ambulating. Discharge in the next 24-48 hours.
[2017-11-06 16:35] LABS: Glucose,Whole Blood 107 mg/dL (75-99)
[2017-11-06 21:10] LABS: Glucose,Whole Blood 130 mg/dL (75-99)
[2017-11-06] MEDS: ATORVASTATIN 20 MG TAB PO SCH (21:28)
[2017-11-07 06:27] LABS: Glucose,Whole Blood 147 mg/dL (75-99)
[2017-11-07 06:35] LABS: HCT 24.8 % (39.0-53.0); HGB 8.1 gm/dL (13.0-17.5); MCH 30.5 pg (25.0-35.0); MCHC 32.8 g/dL (31.0-37.0); Mean Platelet Volume 8.2; Platelet Count 190 k/uL (150-450); RBC 2.67 m/uL (4.30-5.90); RDW 13.8 % (11.5-15.5); WBC 9.6 k/uL (3.8-10.6)
[2017-11-07] MEDS: INSULIN ASPART 100 UNIT/ML 1 ML 10 ML VIAL SQ SCH ×4 (06:53→22:26)
[2017-11-07] MEDS: glipiZIDE 10 MG TAB PO SCH ×2 (06:54→16:38)
[2017-11-07] MEDS: ASPIRIN 325 MG TAB PO SCH (08:48)
[2017-11-07] MEDS: ATENOLOL 25 MG TAB PO SCH ×2 (08:48→22:23)
[2017-11-07] MEDS: DOCUSATE 100 MG CAP PO SCH (08:48)
[2017-11-07] MEDS: HEPARIN SODIUM,PORCINE 5,000 UNIT/ML 1 ML VIAL SQ SCH ×3 (08:48→22:36)
[2017-11-07] MEDS: ACETAMINOPHEN TAB 325 MG TAB PO PRN (09:20)
--- NOTE | 2017-11-07 09:51 | P.PN ---
Progress Note - Text Progress Note Date: 11/07/17 Subjective: Patient feeling better each day. Still a bit weak. Objective: Foot toasty warm. Incision drying up nicely. Vital signs stable, afebrile. Assessment: Good progress post right fem-pop peroneal in situ with endarterectomies. Plan: Progress activities as tolerated. Hope to discharge tomorrow.
[2017-11-07] MEDS: CHOLECALCIFEROL 1,000 UNIT TAB PO SCH (12:22)
[2017-11-07 12:42] LABS: Glucose,Whole Blood 177 mg/dL (75-99)
[2017-11-07 16:29] LABS: Glucose,Whole Blood 112 mg/dL (75-99)
[2017-11-07 21:05] LABS: Glucose,Whole Blood 144 mg/dL (75-99)
[2017-11-07] MEDS: ATORVASTATIN 20 MG TAB PO SCH (22:23)
[2017-11-08] MEDS: ACETAMINOPHEN TAB 325 MG TAB PO PRN (00:16)
[2017-11-08 05:36] LABS: Glucose,Whole Blood 135 mg/dL (75-99)
[2017-11-08] MEDS: INSULIN ASPART 100 UNIT/ML 1 ML 10 ML VIAL SQ SCH ×2 (06:53→12:03)
[2017-11-08] MEDS: glipiZIDE 10 MG TAB PO SCH (06:55)
[2017-11-08] MEDS: ASPIRIN 325 MG TAB PO SCH (08:40)
[2017-11-08] MEDS: DOCUSATE 100 MG CAP PO SCH (08:40)
[2017-11-08] MEDS: ATENOLOL 25 MG TAB PO SCH (08:40)
[2017-11-08] MEDS: HEPARIN SODIUM,PORCINE 5,000 UNIT/ML 1 ML VIAL SQ SCH (08:40)
[2017-11-08 08:44] VITALS: RESP 18
--- NOTE | 2017-11-08 09:54 | P.PN ---
Progress Note - Text Progress Note Date: 11/08/17 S: Patient seen and examined. Doing well. States minimal pain at incision sites. Ambulated today with a walker with minimal difficulty. He denies any fevers, chills, nausea, vomiting. He states dressings have been mostly dry with minimal drainage after walking. O: VSS WNWD, NAD, A&O x 3 RLE incisions with dressings intact, minimal serosanguinous drainage. Minimal TTP along the incision sites. No hematoma noted. Right foot warm with good capillary refill. A: s/p right femoral-peroneal artery bypass with insitu vein graft blood loss anemia- stabilizing P: ok for d/c home today with home health care will see in office in 1-2 weeks. obtain cbc as outpatient at end of week.
[2017-11-08 11:31] VITALS: BP 127/63; PULSE 53; TEMP 97.2
[2017-11-08] MEDS: CHOLECALCIFEROL 1,000 UNIT TAB PO SCH (12:00)
--- NOTE | 2017-11-15 19:51 | P.DS ---
Providers Date of admission: 11/04/17 09:58 Attending physician: Leno Aguilar DO Consults: 11/06/17 08:56 Consult Physician Routine Consulting Provider: Philippe Cortés Consult Reason/Comments: medical management Do you want consulting provider notified?: Yes Primary care physician: Philippe Cortés - Discharge Diagnosis(es) (1) Peripheral vascular disease of lower extremity with ulceration Status: Acute Priority: High Hospital Course: The patient underwent right femoral-tibial artery bypass. Was admitted to hospital for monitoring. Pain was controlled, patient was ambulating with assistance and tolerating a diet prior to discharge home in stable condition. Procedures: right femoral tibial artery bypass Patient Condition at Discharge: Good Plan - Discharge Summary Discharge Rx Participant: No New Discharge Prescriptions: No Action glipiZIDE [Glucotrol] 10 mg PO BID Lovastatin [Mevacor] 80 mg PO HS Atenolol [Tenormin] 25 mg PO BID Aspirin 325 mg PO DAILY Cholecalciferol [Vitamin D3] 5,000 units PO DAILY Discharge Medication List Atenolol [Tenormin] 25 mg PO BID 11/03/16 [History] Lovastatin [Mevacor] 80 mg PO HS 11/03/16 [History] glipiZIDE [Glucotrol] 10 mg PO BID 11/03/16 [History] Aspirin 325 mg PO DAILY 09/19/17 [History] Cholecalciferol [Vitamin D3] 5,000 units PO DAILY 09/19/17 [History] Follow up Appointment(s)/Referral(s): Philippe Cortés DO [Primary Care Provider] - 11/14/17 10:00 am (TUESDAY WITH DR. CORTÉS) Leno Aguilar DO [STAFF PHYSICIAN] - 11/15/17 2:00 pm (At Dr. Jones's office TUESDAY ) [facility], [NON-STAFF] - Lorenzo Jones DO [Doctor of Osteopathic Medicine] - 1 Week Ambulatory/Diagnostic Orders: Complete Blood Count w/diff [LAB.AMB] Location: Determined By Patient Patient Instructions/Handouts: Femoropopliteal Bypass (DC) Activity/Diet/Wound Care/Special Instructions: [facility] will deliver Glucometer and follow up with Dr Cortés Discharge Disposition: HOME WITH HOME HEALTH SERVICES
== END 2017-11-08 12:27 | disposition home health service (06) | DRG 253 ==
LOC: 2ORMAIN 09:58 → 6SEL 18:04
PROVIDERS: ADMIT Surgery; ATTEND Surgery
DX: E11.51 Type 2 diabetes mellitus with diabetic peripheral angiopathy without gangrene (principal); L97.419 Non-pressure chronic ulcer of right heel and midfoot with unspecified severity; I70.212 Atherosclerosis of native arteries of extremities with intermittent claudication, left leg; I70.234 Atherosclerosis of native arteries of right leg with ulceration of heel and midfoot; Z79.84 Long term (current) use of oral hypoglycemic drugs; Z79.82 Long term (current) use of aspirin; Z79.899 Other long term (current) drug therapy; Z84.89 Family history of other specified conditions; Z87.891 Personal history of nicotine dependence
CPT/HCPCS: 83036; 85025; 85027; 86850; 86900; 86901

== ENCOUNTER → 2018-01-24 | Outpatient (CLI) | payer MEDICARE ==
[2018-01-24 18:02] LABS: Appearance,Urine Clear (Clear); Bilirubin,Urine Negative (Negative); Blood,Urine Negative (Negative); Color,Urine Yellow; Glucose,Urine (UA) Trace (Negative); Hyaline Casts,Urine 13 /lpf (0-2); Ketones,Urine Negative (Negative); Leukocyte Esterase,Urine Negative (Negative); Nitrite,Urine Negative (Negative); PH, Urine 6.5 (5.0-8.0); Protein,Urine 2+ (Negative); RBC,Urine <1 /hpf (0-5); Specific Gravity,Urine 1.011 (1.001-1.035); Urobilinogen,Urine <2.0 mg/dL (<2.0); WBC,Urine <1 /hpf (0-5)
[2018-01-24 18:04] LABS: Partial Thromboplastin Time 22.7 sec (22.0-30.0); Prothrombin Time 9.8 sec (9.0-12.0)
[2018-01-24 18:05] LABS: Basophils # (A) 0.1 k/uL (0-0.2); Basophils % (A) 1 %; Eosinophils # (A) 0.3 k/uL (0-0.7); Eosinophils % (A) 2 %; HGB 12.2 gm/dL (13.0-17.5); Hypochromasia Slight; Lymphocytes # (A) 4.5 k/uL (1.0-4.8); Lymphocytes % (A) 40 %; MCH 27.9 pg (25.0-35.0); MCHC 31.4 g/dL (31.0-37.0); Mean Platelet Volume 7.4; Monocytes # (A) 0.6 k/uL (0-1.0); Monocytes % (A) 5 %; Neutrophils # (A) 5.1 k/uL (1.3-7.7); Neutrophils % (A) 45 %; Platelet Count 291 k/uL (150-450); Potassium 5.9 mmol/L (3.5-5.1); RBC 4.38 m/uL (4.30-5.90); RDW 13.6 % (11.5-15.5); WBC 11.2 k/uL (3.8-10.6)
== END | disposition home or self-care (01) ==
LOC: LABPAT 16:53
PROVIDERS: ATTEND Surgery
DX: Z01.812 Encounter for preprocedural laboratory examination (principal); M79.671 Pain in right foot; Z51.81 Encounter for therapeutic drug level monitoring; Z79.01 Long term (current) use of anticoagulants
CPT/HCPCS: 36415; 80051; 81001; 82947; 85025; 85610; 85730; 86850; 86900; 86901

== ENCOUNTER 2018-01-31 09:53 | Day surgery (SDC) | payer MEDICARE ==
[~2018-01-31 09:53] MED LIST changes: +ALPRAZolam 0.25 MG TAB PO PRN; +ASPIRIN 325 MG TAB PO STA; -HYDROmorphone 0.5 MG/0.5 ML SYRINGE IVP PRN; -MIDAZOLAM 2 MG/2 ML VIAL IV PRN; -MORPHINE SULFATE 4 MG/ML SYRINGE IV PRN; -NITROGLYCERIN-D5W PMX 50 MG in DEXTROSE/WATER 1 250ML.BAG IV SCH; -PHENYLEPHRINE 40 MG in SODIUM CHLORIDE 0.9% 250 ML IV SCH; +SODIUM CHLORIDE 0.9% 1,000 ML in EMPTY BAG 1 BAG IV ONE; -ceFAZolin IN SWFI 2 GM/20 ML SYRINGE IVP ONE
[2018-01-31 10:45] LABS: Glucose,Whole Blood 145 mg/dL (75-99)
[2018-01-31 11:30] LABS: Calcium 9.7 mg/dL (8.4-10.2); Potassium 5.5 mmol/L (3.5-5.1)
[2018-01-31] MEDS ORDERED: hydrALAZINE HCL 20 MG/ML 1 ML VIAL ONE (11:37)
[2018-01-31] MEDS ORDERED: hydrALAZINE HCL 20 MG/ML 1 ML VIAL IVP ONE (11:39)
[2018-01-31] MEDS ORDERED: LIDOCAINE 2% INJ 20 MG/ML SQ ONE (12:18)
[2018-01-31] MEDS ORDERED: HEPARIN SODIUM 1,000 UN/ML (10ML VL) IV ONE (12:36)
[2018-01-31] MEDS ORDERED: niCARdipine Syringe (1,000 mcg/10 mL) INTRAARTER ONE (12:57)
[2018-01-31] MEDS ORDERED: IODIXANOL 320 MG/ML 100 ML INTRAARTER ONE (13:25)
--- NOTE | 2018-01-31 14:05 | P.OP ---
Date of Procedure: 01/31/18 Preoperative Diagnosis: RLE fem-tibial artery bypass outflow stenosis with critical limb ischemia Postoperative Diagnosis: Same Procedure(s) Performed: Aortogram with RLE selective angiogram via left femoral artery ultrasound guided access. RLE femoral-tibial bypass outflow stenosis balloon angioplasty with 4x200 mm Evercross and 4x60mm Inpact drug eluding balloon RLE peroneal artery balloon angioplasty Implants: none Anesthesia: local Surgeon: Leno Aguilar Estimated Blood Loss (ml): 5 IV fluids (ml): 250 Pathology: none sent Condition: stable Disposition: floor Indications for Procedure: 82-year-old gentleman who originally presented to the office secondary to bilateral occlusions of his femoral-popliteal bypass grafts and critical limb ischemia. Patient underwent a right femoral to below knee tibial artery bypass with vein graft 4 months ago secondary to critical limb ischemia and wounds of his right foot. Since that time his have healed and his pain was improved until recently approximately 2 weeks ago. He states he was feeling great until 2 weeks ago when he started feeling increased pain in his right calf especially with ambulation. Ultrasound was obtained of his graft which showed patent bypass but elevated velocities at the distal anastomosis indicative of stenosis. He presents today for possible balloon angioplasty of his bypass graft. Operative Findings: Aorta, bilateral common iliacs, internal iliac and external iliac arteries were patent with minimal atherosclerosis disease. The right femoral artery was patent with a patent graft but decreased flow through the graft secondary to outflow obstruction. The profunda was widely patent. The distal anastomosis appeared to have some narrowing as well as narrowing at the tibioperoneal trunk and peroneal vessel. His anterior tibial artery was occluded as well as his posterior tibial artery just after the takeoff. His peroneal artery was narrowed just after takeoff but extended to the ankle and filled the foot. Description of Procedure: After written informed consent was obtained the patient all risks benefits competitions were described the patient is brought to the Physician Anesthesiologist and laid in the supine position. Timeout was performed in normal fashion. The area of the groins were prepped and draped in the usual sterile fashion. Local anesthetic was then infused overlying the left common femoral artery and utilizing ultrasound the femoral artery was cannulated with a multipurpose needle. Utilizing Seldinger technique a 5-Bur[place] sheath was placed and patient was administered 3000 units of heparin. 035 Glidewire advantage was then used followed by a RBI catheter. Aortogram was obtained demonstrating patent aorta and normal common iliac arteries. The right iliac vessels were then cannulated with the use of the catheter. Once the Glidewire advantage was Up & Over a 6- [place] RAABE sheath was then placed in normal fashion. Right lower extremity angiogram was then obtained demonstrating patent femoral artery with minimal disease as well as deep profundus artery which was patent with minimal disease. The takeoff of the bypass appeared to be patent there was diminished blood flow through the bypass as well as some areas of narrowing throughout. An 035 Glidewire was then placed into the femoral tibial bypass graft followed by a 035 quick cross catheter. Angiograms were then obtained serially throughout the bypass as well as distal. A Glidewire was then placed in the peroneal vessel across the anastomosis and utilizing a 4 x 200 mm Ever cross balloon balloon angioplasty was performed. Balloon angioplasty was then continued throughout the graft. There was areas of narrowing at the peroneal artery just distal to the anastomosis and therefore a 4 x 60 mm LUAN inpact balloon was placed in usual fashion. Patient was then administered nicardipine 200 mcg. Angiogram was obtained demonstrating one-vessel runoff to the ankle with filling of his foot from the peroneal artery. The anterior tibial artery was patent at the takeoff but occluded mid tibial region. All catheters and guidewires were removed final angiogram was obtained with a bolus ragini which demonstrated patent bypass extending to the peroneal artery to the foot. All catheters were then removed as well as the sheath and pressure was held for hemostasis. Multiphasic signal noted at the AT and DP as well as palpable pulse in the bypass graft.
[2018-01-31] MEDS ORDERED: HYDROcodone/APAP 5-325MG 1 EACH TAB PO PRN (14:08)
[2018-01-31] MEDS: SODIUM CHLORIDE 0.9% 1,000 ML IV SCH ×2 (14:30→19:55)
[2018-01-31 15:23] VITALS: BMI 21.2
[2018-01-31 15:56] LABS: HCT 39.2 % (39.0-53.0); HGB 12.5 gm/dL (13.0-17.5); MCH 27.9 pg (25.0-35.0); MCV 87.3 fL (80.0-100.0); Mean Platelet Volume 7.4; Platelet Count 260 k/uL (150-450); RBC 4.49 m/uL (4.30-5.90); WBC 11.1 k/uL (3.8-10.6)
[2018-01-31 16:01] LABS: Calcium 9.6 mg/dL (8.4-10.2); Potassium 5.2 mmol/L (3.5-5.1)
[2018-01-31 16:13] LABS: Lymphocytes # (M) 4.44 k/uL (1.0-4.8); Monocytes # (M) 0.33 k/uL (0-1.0); Neutrophils # (M) 6.33 k/uL (1.3-7.7); Neutrophils % (M) 57 %; Nucleated Red Blood Cells 0 /100 WBC (0-0); Total Cells Counted 100
[2018-01-31 16:14] LABS: Poikilocytosis (M) Present; Toxic Granulation Present
[2018-01-31] MEDS: glipiZIDE 10 MG TAB PO SCH (17:35)
[2018-01-31] MEDS: CLOPIDOGREL 75 MG TAB PO SCH (17:36)
[2018-01-31] MEDS: ATENOLOL 25 MG TAB PO SCH (19:56)
[2018-01-31 20:44] LABS: Glucose,Whole Blood 156 mg/dL (75-99)
[2018-01-31] MEDS ORDERED: ATORVASTATIN 20 MG TAB PO SCH (21:00)
[2018-01-31] MEDS: INSULIN ASPART 100 UNIT/ML 1 ML 10 ML VIAL SQ SCH (21:29)
--- NOTE | 2018-02-01 03:12 | CONS ---
CONSULTATION DATE OF CONSULTATION: 01/31/2018 REASON FOR CONSULTATION: Medical management requested by Dr. Avalos. CONSULTATION: This is a pleasant 82-year-old patient of Dr. Cortés. Chronic stable medical conditions include diabetes, hypertension, hyperlipidemia and coronary artery disease. The patient has had prior history of coronary bypass. The patient has a femoral- popliteal bypass done in the past. With the bypass the patient actually had foot sores that actually had healed. Subsequently, the patient's foot sores did come back, especially on the right foot and the patient was found to have blockage. The patient underwent right lower extremity fem-tibial artery bypass outflow stenosis angioplasty. This access was done from the left groin area. Later in the evening the patient the did ge up. The patient was oozing some blood and repeat pressure dressing was carried out. Denies any chest pain, short of breath. No nausea or vomiting. REVIEW OF SYSTEMS: CONSTITUTIONAL: None. HEENT: None. RESPIRATORY: None. CARDIOVASCULAR: None. GASTROINTESTINAL: None. GENITOURINARY: None. MUSCULOSKELETAL: None. DERMATOLOGIC: As above. LYMPHATICS: None. PSYCHIATRY: None. NEUROLOGICAL: None. DERMATOLOGIC: The patient had superficial ulcer on the right foot. PAST MEDICAL HISTORY: Diabetes, hypertension, hyperlipidemia, coronary artery with bypass, foot ulcers, peripheral artery disease. PAST SURGICAL HISTORY: Adenoidectomy, appendectomy, bladder surgery, coronary bypass, triple arterial fem bypass, bilateral coronary bypass 1999. SOCIAL HISTORY: Smoked a pack a day for 60 years, stopped in 2017. . FAMILY HISTORY: Esophageal cancer. HOME MEDICATIONS: 1. Glucotrol 10 mg b.i.d. 2. Mevacor 80 mg q.h.s. 3. Vitamin D3 500 units p.o. daily. 4. Tenormin 25 p.o. b.i.d. 5. Aspirin 325 p.o. daily. ALLERGIES: TRAMADOL. PHYSICAL EXAMINATION: Temperature 99.1, pulse 67, respirations 16, blood pressure 148/67, pulse ox 97% room air. GENERAL APPEARANCE: Average build, lying in bed, tired appearing. EYES: Pupils equal. Conjunctivae normal. HEENT: External appearance of nose and ears normal. Oral cavity normal. NECK: JVD not raised. Mass not palpable. RESPIRATORY: Effort normal. Lungs fair entry. CARDIOVASCULAR: First and second sounds normal. No edema. ABDOMEN: Soft, nontender. Liver and spleen not palpable. LYMPHATICS: No lymph nodes palpable in neck or axillae. PSYCHIATRY: Alert and oriented x3. Mood and affect normal. EXTREMITIES: Dressing over the left groin, distal. Extremities lower warm. INVESTIGATIONS: White count 11.1, hemoglobin 12.5, potassium 5.2, BUN 23, creatinine 1.11. ASSESSMENT: 1. Right lower extremity fem tib artery bypass outflow stenosis with critical limb ischemia causing superficial ulcers followed by balloon angioplasty. 2. Diabetes mellitus type 2 on oral hypoglycemic. 3. Hyperlipidemia. 4. Essential hypertension. 5. Coronary artery disease, prior history of coronary bypass. 6. Right foot superficial ulcers. 7. Severe peripheral artery disease with prior intervention. PLAN: Patient's home medications will be resumed. Accu-Cheks will be closely followed. The patient is on aspirin. Patient did have a little bit of oozing of blood from the left groin at the access site. Keep a close eye on the hemodynamics and the hemoglobin. Care was discussed with the patient. Fortunately the patient has not had any major insult from the long history of smoking. The patient's activity orders as per Dr. Aguilar. Patient should follow up with Dr. Cortés upon discharge. Thank you, Dr. Aguilar. MMODL / IJN: [id number] /
[2018-02-01 06:04] LABS: Glucose,Whole Blood 115 mg/dL (75-99)
[2018-02-01] MEDS: INSULIN ASPART 100 UNIT/ML 1 ML 10 ML VIAL SQ SCH (06:06)
[2018-02-01] MEDS: glipiZIDE 10 MG TAB PO SCH (08:24)
[2018-02-01] MEDS: ATENOLOL 25 MG TAB PO SCH (08:24)
[2018-02-01] MEDS: CLOPIDOGREL 75 MG TAB PO SCH (08:24)
[2018-02-01] MEDS ORDERED: ASPIRIN 81 MG PO SCH (09:00)
--- NOTE | 2018-02-01 09:41 | P.DS ---
Providers Date of admission: 01/31/2018 Expected date of discharge: 02/01/18 Attending physician: Leno Aguilar DO Consults: 01/31/18 14:08 Consult Physician Routine Consulting Provider: Cristopher Quarles Consult Reason/Comments: medical management Do you want consulting provider notified?: Yes Primary care physician: Philippe Cortés - Discharge Diagnosis(es) (1) Peripheral vascular disease of lower extremity with ulceration Patient has ulcerations on the toes of the right foot and Doppler study suggests progression of his occlusive disease. Current Visit: No Status: Acute Priority: High Hospital Course: The patient was admitted on 01/31/2018 and underwent extensive balloon angioplasty of infrapopliteal vessels and the outflow of the right fem-tib in situ bypass. He had some mild puncture site bleeding on the left groin that evening. The issue was resolved with a pressure dressing. The following morning he was asymptomatic with a warm right foot and no bleeding underneath the pressure dressing on the left groin. Pertinent Studies: During his stay he had his angiography and balloon angioplasties Procedures: Please see op note. Diagnostic angiogram. Extensive balloon angioplasties outflow track right fem-tib in situ and distal vessels right lower leg. Patient Condition at Discharge: Good Plan - Discharge Summary Discharge Rx Participant: No New Discharge Prescriptions: New Clopidogrel [Plavix] 75 mg PO DAILY #30 tab Continue glipiZIDE [Glucotrol] 10 mg PO BID Lovastatin [Mevacor] 80 mg PO HS Atenolol [Tenormin] 25 mg PO BID Aspirin 325 mg PO DAILY Cholecalciferol [Vitamin D3] 5,000 units PO DAILY Discharge Medication List Atenolol [Tenormin] 25 mg PO BID 11/03/16 [History] Lovastatin [Mevacor] 80 mg PO HS 11/03/16 [History] glipiZIDE [Glucotrol] 10 mg PO BID 11/03/16 [History] Aspirin 325 mg PO DAILY 09/19/17 [History] Cholecalciferol [Vitamin D3] 5,000 units PO DAILY 09/19/17 [History] Clopidogrel [Plavix] 75 mg PO DAILY #30 tab 02/01/18 [Rx] Follow up Appointment(s)/Referral(s): Leno Aguilar DO [STAFF PHYSICIAN] - 02/07/18 3:15 pm (To be seen at Dr. Guo office. [address] [facility], [address] [place] ) Patient Instructions/Handouts: Heart Healthy Diet (DC), Peripheral Vascular Disease (DC)
--- NOTE | 2018-02-01 10:12 | IR ---
Fluoroscopy HISTORY: Pain in right foot 16 minutes fluoroscopy time supplied to the referring clinician. 421 intraoperative C-arm images doc ument the procedure. See dictated report from cardiology.
[2018-02-01 10:26] VITALS: BP 177/74; PULSE 56; RESP 18; TEMP 96.6
[2018-02-01] MEDS ORDERED: CHOLECALCIFEROL 1,000 UNIT TAB PO SCH (12:00)
[2018-02-01 14:24] LABS: Hemoglobin A1C 7.5 % (4.0-6.0)
== END 2018-02-01 10:51 | disposition home or self-care (01) ==
LOC: CATHCVL 09:53 → 6SEL 13:30 → CATHCVL 02-01 10:51
PROVIDERS: ATTEND Surgery
DX: T82.858A Stenosis of other vascular prosthetic devices, implants and grafts, initial encounter (principal); I70.201 Unspecified atherosclerosis of native arteries of extremities, right leg; I10 Essential (primary) hypertension; E11.9 Type 2 diabetes mellitus without complications; Z79.84 Long term (current) use of oral hypoglycemic drugs; E78.5 Hyperlipidemia, unspecified; I25.10 Atherosclerotic heart disease of native coronary artery without angina pectoris; Z95.1 Presence of aortocoronary bypass graft; Z87.891 Personal history of nicotine dependence; Z79.82 Long term (current) use of aspirin; Z79.899 Other long term (current) drug therapy
CPT/HCPCS: 37224; 37228; 80048; 82565; 85025; 83036; C1894 ×2; C1887; C1725; C1769 ×3; C2623; J2001; J0360; Q9967; J1644

== ENCOUNTER 2018-03-31 07:42 | Emergency (ER) | payer MEDICARE ==
--- NOTE | 2018-03-31 08:21 | ED ---
General Adult HPI - General Chief complaint: Dizziness Stated complaint: dizziness Time Seen by Provider: 03/31/18 07:52 Source: patient, RN notes reviewed, old records reviewed Mode of arrival: wheelchair Limitations: no limitations - History of Present Illness Initial comments: 83-year-old male presenting with dizziness and unsteady gait. Patient states that this morning while walking he was feeling very unsteady, wanting to fall to the left side. He states he initially felt dizzy with standing. Denies any syncopal episodes. Denies lightheadedness. Denies chest pain or palpitations. Denies headache. Denies vision changes. Denies abdominal pain. Denies nausea vomiting or diarrhea. Patient does have peripheral vascular disease he is status post bypass 3 or 4 months ago. Denies any lower extremity symptoms. He states he has had no pain. He does report some chronic right lower extremity swelling which is unchanged. No focal weakness or paresthesias. - Related Data Home Medications Medication Instructions Recorded Confirmed Atenolol [Tenormin] 25 mg PO BID 11/03/16 03/31/18 Lovastatin [Mevacor] 80 mg PO HS 11/03/16 03/31/18 Cholecalciferol [Vitamin D3] 5,000 units PO DAILY 09/19/17 03/31/18 Aspirin EC [Ecotrin] 325 mg PO DAILY 03/31/18 03/31/18 glipiZIDE [Glucotrol] 10 mg PO BID-W/MEALS 03/31/18 03/31/18 Previous Rx's Medication Instructions Recorded Clopidogrel [Plavix] 75 mg PO DAILY #30 tab 02/01/18 Meclizine [Antivert] 25 mg PO TID PRN #21 tab 03/31/18 Allergies Allergy/AdvReac Type Severity Reaction Status Date / Time tramadol [From Ultram] AdvReac Hallucinati Verified 03/31/18 08:13 ons Review of Systems ROS Statement: Those systems with pertinent positive or pertinent negative responses have been documented in the HPI. ROS Other: All systems not noted in ROS Statement are negative. Past Medical History Past Medical History: Cancer, Diabetes Mellitus, Hyperlipidemia, Hypertension, Vascular Disorder Additional Past Medical History / Comment(s): previous wound rt foot/ [place]; bladder cancer 1998 History of Any Multi-Drug Resistant Organisms: None Reported Past Surgical History: Adenoidectomy, Appendectomy, Bladder Surgery, Coronary Bypass/CABG, Tonsillectomy Additional Past Surgical History / Comment(s): AAA ,arterial femoral bypasses malini leg,CABG-3 vessel 2000 Past Anesthesia/Blood Transfusion Reactions: No Reported Reaction Additional Past Anesthesia/Blood Transfusion Reaction / Comment(s): no known hx of blood transfusions Past Psychological History: No Psychological Hx Reported Smoking Status: Former smoker Past Alcohol Use History: None Reported Past Drug Use History: None Reported - Past Family History Brother(s) Family Medical History: Cancer Additional Family Medical History / Comment(s): esophageal Ca Father Additional Family Medical History / Comment(s): AAA Mother Family Medical History: Dementia, Diabetes Mellitus General Exam Limitations: no limitations General appearance: alert, in no apparent distress Head exam: Present: atraumatic, normocephalic Eye exam: Present: normal appearance, PERRL, EOMI. Absent: nystagmus ENT exam: Present: normal exam Neck exam: Present: normal inspection. Absent: tenderness, meningismus Respiratory exam: Present: normal lung sounds bilaterally. Absent: respiratory distress, wheezes Cardiovascular Exam: Present: normal rhythm, bradycardia GI/Abdominal exam: Present: soft. Absent: distended, tenderness Extremities exam: Present: pedal edema (Trace pedal edema on the right extremities are warm bilaterally) Neurological exam: Present: alert, oriented X3, CN II-XII intact. Absent: motor sensory deficit Psychiatric exam: Present: normal affect, normal mood Skin exam: Present: warm, dry. Absent: intact (Patient patient has nonhealing wound on the tip of his nose. ), cyanosis, diaphoretic Course Vital Signs 03/31/18 03/31/18 03/31/18 07:44 08:47 09:40 Temperature 97.6 F Pulse Rate 49 L 46 L 52 L Respiratory 18 18 20 Rate Blood Pressure 192/77 190/81 191/87 O2 Sat by Pulse 98 99 97 Oximetry EKG Findings - EKG Comments: EKG Findings:: EKG sinus bradycardia rate of 53, AR interval 164, QRS duration 114, QTC [address] segment elevation. There is T-wave abnormality in the lateral precordium, no significant change from prior Medical Decision Making - Medical Decision Making 83-year-old male presenting with vertigo. He is found on exam to have impacted right cerumen, this is removed with an ear curet. Workup in the emergency department reveals normal white blood cell count, hemoglobin is stable at 12.6. Patient does have some hyperkalemia at 5.6 which is primary care physician is aware of. Creatinine 1.43 which is slightly above recent of 1.2. CT shows no acute intracranial pathology. Chest x-ray is negative, UA is negative. EKG shows bradycardia with no significant change from prior. On reevaluation after normal saline bolus, and meclizine as well as cerumen disimpaction patient feels 100% better. He is eager for discharge. He will follow-up with his primary care physician. - Lab Data Result diagrams: 03/31/18 08:01 03/31/18 08:01 Lab Results 03/31/18 03/31/18 03/31/18 Range/Units 08:01 08:01 08:01 WBC 7.2 (3.8-10.6) k/uL RBC 4.41 (4.30-5.90) m/uL Hgb 12.6 L (13.0-17.5) gm/dL Hct 39.1 (39.0-53.0) % MCV 88.5 (80.0-100.0) fL MCH 28.5 (25.0-35.0) pg MCHC 32.2 (31.0-37.0) g/dL RDW 15.3 (11.5-15.5) % Plt Count 143 L (150-450) k/uL Neutrophils % (Manual) 54 % Lymphocytes % (Manual) 41 % Monocytes % (Manual) 5 % Neutrophils # (Manual) 3.89 (1.3-7.7) k/uL Lymphocytes # (Manual) 2.95 (1.0-4.8) k/uL Monocytes # (Manual) 0.36 (0-1.0) k/uL Nucleated RBCs 0 (0-0) /100 WBC Manual Slide Review Performed RBC Morphology Normal PT (9.0-12.0) sec INR (<1.2) APTT (22.0-30.0) sec Sodium 139 (137-145) mmol/L Potassium 5.6 H (3.5-5.1) mmol/L Chloride 104 (98-107) mmol/L Carbon Dioxide 24 (22-30) mmol/L Anion Gap 11 mmol/L BUN 27 H (9-20) mg/dL Creatinine 1.43 H (0.66-1.25) mg/dL Est GFR (CKD-EPI)AfAm 53 (>60 ml/min/1.73 sqM) Est GFR (CKD-EPI)NonAf 46 (>60 ml/min/1.73 sqM) Glucose 168 H (74-99) mg/dL Calcium 9.4 (8.4-10.2) mg/dL Magnesium 1.8 (1.6-2.3) mg/dL Total Bilirubin 0.5 (0.2-1.3) mg/dL AST 26 (17-59) U/L ALT 33 (21-72) U/L Alkaline Phosphatase 58 (38-126) U/L Total Creatine Kinase 39 L (55-170) U/L CK-MB (CK-2) 1.4 (0.0-2.4) ng/mL CK-MB (CK-2) Rel Index 3.6 Troponin I <0.012 (0.000-0.034) ng/mL Total Protein 6.8 (6.3-8.2) g/dL Albumin 4.1 (3.5-5.0) g/dL Urine Color Urine Appearance (Clear) Urine pH (5.0-8.0) Ur Specific [place] (1.001-1.035) Urine Protein (Negative) Urine Glucose (UA) (Negative) Urine Ketones (Negative) Urine Blood (Negative) Urine Nitrite (Negative) Urine Bilirubin (Negative) Urine Urobilinogen (<2.0) mg/dL Ur Leukocyte Esterase (Negative) Urine RBC (0-5) /hpf Urine WBC (0-5) /hpf Urine Bacteria (None) /hpf 03/31/18 03/31/18 Range/Units 08:01 09:30 WBC (3.8-10.6) k/uL RBC (4.30-5.90) m/uL Hgb (13.0-17.5) gm/dL Hct (39.0-53.0) % MCV (80.0-100.0) fL MCH (25.0-35.0) pg MCHC (31.0-37.0) g/dL RDW (11.5-15.5) % Plt Count (150-450) k/uL Neutrophils % (Manual) % Lymphocytes % (Manual) % Monocytes % (Manual) % Neutrophils # (Manual) (1.3-7.7) k/uL Lymphocytes # (Manual) (1.0-4.8) k/uL Monocytes # (Manual) (0-1.0) k/uL Nucleated RBCs (0-0) /100 WBC Manual Slide Review RBC Morphology PT 10.1 (9.0-12.0) sec INR 1.0 (<1.2) APTT 20.9 L (22.0-30.0) sec Sodium (137-145) mmol/L Potassium (3.5-5.1) mmol/L Chloride (98-107) mmol/L Carbon Dioxide (22-30) mmol/L Anion Gap mmol/L BUN (9-20) mg/dL Creatinine (0.66-1.25) mg/dL Est GFR (CKD-EPI)AfAm (>60 ml/min/1.73 sqM) Est GFR (CKD-EPI)NonAf (>60 ml/min/1.73 sqM) Glucose (74-99) mg/dL Calcium (8.4-10.2) mg/dL Magnesium (1.6-2.3) mg/dL Total Bilirubin (0.2-1.3) mg/dL AST (17-59) U/L ALT (21-72) U/L Alkaline Phosphatase (38-126) U/L Total Creatine Kinase (55-170) U/L CK-MB (CK-2) (0.0-2.4) ng/mL CK-MB (CK-2) Rel Index Troponin I (0.000-0.034) ng/mL Total Protein (6.3-8.2) g/dL Albumin (3.5-5.0) g/dL Urine Color Light Yellow Urine Appearance Clear (Clear) Urine pH 7.0 (5.0-8.0) Ur Specific [place] 1.008 (1.001-1.035) Urine Protein 1+ H (Negative) Urine Glucose (UA) Negative (Negative) Urine Ketones Negative (Negative) Urine Blood Negative (Negative) Urine Nitrite Negative (Negative) Urine Bilirubin Negative (Negative) Urine Urobilinogen <2.0 (<2.0) mg/dL Ur Leukocyte Esterase Negative (Negative) Urine RBC <1 (0-5) /hpf Urine WBC <1 (0-5) /hpf Urine Bacteria Rare H (None) /hpf Disposition Clinical Impression: Vertigo, Cerumen impaction Disposition: HOME SELF-CARE Condition: Fair Instructions: Vertigo (ED), Cerumen Impaction (ED) Prescriptions: Meclizine [Antivert] 25 mg PO TID PRN #21 tab PRN Reason: Vertigo Is patient prescribed a controlled substance at d/c from ED?: No Referrals: Philippe Cortés DO [Primary Care Provider] - 1-2 days
[2018-03-31 08:34] LABS: Albumin 4.1 g/dL (3.5-5.0); Calcium 9.4 mg/dL (8.4-10.2); Magnesium 1.8 mg/dL (1.6-2.3); Potassium 5.6 mmol/L (3.5-5.1); Total Bilirubin 0.5 mg/dL (0.2-1.3); Total Protein 6.8 g/dL (6.3-8.2)
[2018-03-31 08:41] LABS: HCT 39.1 % (39.0-53.0); HGB 12.6 gm/dL (13.0-17.5); MCH 28.5 pg (25.0-35.0); MCHC 32.2 g/dL (31.0-37.0); MCV 88.5 fL (80.0-100.0); Mean Platelet Volume 8.6; Platelet Count 143 k/uL (150-450); RBC 4.41 m/uL (4.30-5.90); RDW 15.3 % (11.5-15.5); WBC 7.2 k/uL (3.8-10.6)
[2018-03-31 08:45] LABS: Creatine Kinase 39 U/L (55-170)
[2018-03-31 08:46] LABS: Prothrombin Time 10.1 sec (9.0-12.0)
--- NOTE | 2018-03-31 08:49 | XR ---
EXAMINATION TYPE: XR chest 2V DATE OF EXAM: 03/31/2018 COMPARISON: 11/03/2016 HISTORY: Dizziness. Prior cardiac surgery. TECHNIQUE: Frontal and lateral views of the chest are obtained. FINDINGS: There is no focal air space opacity, pleural effusion, or pneumothorax seen. Pulmonary hyp erinflation and flattening of the diaphragms are compatible with underlying COPD. Post CABG changes a re seen of the chest with prominent size of the cardiomediastinal silhouette. Osseous structures are generally demineralized with moderate multilevel degenerative change. The osseous structures are in tact. IMPRESSION: Chronic changes with no acute cardiopulmonary process.
[2018-03-31 08:58] LABS: Creatine Kinase MB 1.4 ng/mL (0.0-2.4); Troponin I <0.012 ng/mL (0.000-0.034)
--- NOTE | 2018-03-31 08:58 | CT ---
EXAMINATION TYPE: CT brain wo con DATE OF EXAM: 03/31/2018 COMPARISON: NONE INDICATION: Dizziness DLP: 1017.9 mGycm, Automated exposure control for dose reduction was used. CONTRAST: None CT of the brain is performed utilizing 3 mm thick sections through the posterior fossa and 3 mm thick sections through the remaining calvarium. Study is performed within 24 hours of arrival to the hosp ital. No abnormal hyperdensity is present to suggest an acute intracranial hemorrhage. No mass lesion is evident. No acute infarcts are evident. Periventricular white matter hypodensity is present, likely on the bas is of chronic white matter ischemic changes. Tiny lacunar infarct may be within the right caudate hea d. Ventricles and sulci are mildly prominent for the patient age. Paranasal sinuses and mastoid air cells within the [id number] are clear. IMPRESSIONS: 1. Atrophy with periventricular white matter ischemic changes.
[2018-03-31 09:03] LABS: Partial Thromboplastin Time 20.9 sec (22.0-30.0)
[2018-03-31 09:09] LABS: Lymphocytes # (M) 2.95 k/uL (1.0-4.8); Monocytes # (M) 0.36 k/uL (0-1.0); Neutrophils # (M) 3.89 k/uL (1.3-7.7); Neutrophils % (M) 54 %; Nucleated Red Blood Cells 0 /100 WBC (0-0); Total Cells Counted 100
[2018-03-31] MEDS ORDERED: MECLIZINE 12.5 MG TAB PO STA (09:11)
[2018-03-31] MEDS ORDERED: SODIUM CHLORIDE 0.9% 500 ML IV ONE (09:11)
[2018-03-31] MEDS ORDERED: SODIUM CHLORIDE 0.9% 1,000 ML IV SCH (09:15)
[2018-03-31 09:50] LABS: Appearance,Urine Clear (Clear); Bacteria,Urine Rare /hpf; Bilirubin,Urine Negative (Negative); Blood,Urine Negative (Negative); Color,Urine Light Yellow; Glucose,Urine (UA) Negative (Negative); Ketones,Urine Negative (Negative); Leukocyte Esterase,Urine Negative (Negative); Nitrite,Urine Negative (Negative); Protein,Urine 1+ (Negative); RBC,Urine <1 /hpf (0-5); Specific Gravity,Urine 1.008 (1.001-1.035); Urobilinogen,Urine <2.0 mg/dL (<2.0); WBC,Urine <1 /hpf (0-5)
[2018-03-31 10:16] VITALS: BP 185/85; PULSE 54; RESP 18; TEMP 98
== END 2018-03-31 10:21 | disposition home or self-care (01) ==
LOC: EC 07:42
DX: H61.21 Impacted cerumen, right ear (principal); E11.9 Type 2 diabetes mellitus without complications; E78.5 Hyperlipidemia, unspecified; I10 Essential (primary) hypertension; I73.9 Peripheral vascular disease, unspecified; Z85.51 Personal history of malignant neoplasm of bladder; Z95.1 Presence of aortocoronary bypass graft; Z87.891 Personal history of nicotine dependence; Z79.82 Long term (current) use of aspirin; Z79.84 Long term (current) use of oral hypoglycemic drugs; Z79.899 Other long term (current) drug therapy; Z88.6 Allergy status to analgesic agent
CPT/HCPCS: 36415; 69210; 70450; 71046; 80053; 81001; 82550; 82553; 83735; 84484; 85025; 85610; 85730; 93005; 96360; 99285

== ENCOUNTER 2019-01-04 23:55 | Emergency (ER) | payer MEDICARE ==
[2019-01-05 00:04] VITALS: BP 157/72; PULSE 85; RESP 18; TEMP 98.2
--- NOTE | 2019-01-05 00:52 | ED ---
ENT HPI - General Source: patient Mode of arrival: ambulatory Limitations: no limitations <Thu Cee - Last Filed: 01/05/19 01:05> <Keshia Varela - Last Filed: 01/05/19 02:58> - General Chief complaint: ENT Stated complaint: Post Reconstructive Surgery Clotting Issue Time Seen by Provider: 01/05/19 00:12 - History of Present Illness Initial comments: 83-year-old male patient presents to the emergency department today for evaluation of bleeding from surgical wound. Patient underwent a forehead flap closure to nose today with Dr. Obregon from [facility]. The procedure was performed [place]. Patient presents tonight because he has complete blood saturation of the dressings, has started to have significant swelling surrounding the right eye, and is having bleeding from the nose and inner canthus of the right eye. Patient states he has had slow bleeding from the wounds throughout the day since discharge. Patient does take Plavix, states he stopped taking this medication on Tuesday. Patient states that he is experiencing some weakness however has not eaten since 11 PM last evening. He denies any dizziness. States he did attempt to call the surgeon however was unable to get a hold of anyone. Patient denies any recent rash, fever, chills, shortness breath, chest pain, abdominal pain, nausea, vomiting, diarrhea, constipation, back pain, numbness, tingling, hematuria, dysuria, urinary urgency, urinary frequency, headache, visual changes, or any other complaints. (Thu Cee) - Related Data Home Medications Medication Instructions Recorded Confirmed Atenolol [Tenormin] 25 mg PO BID 11/03/16 03/31/18 Lovastatin [Mevacor] 80 mg PO HS 11/03/16 03/31/18 Cholecalciferol [Vitamin D3] 5,000 units PO DAILY 09/19/17 03/31/18 Aspirin EC [Ecotrin] 325 mg PO DAILY 03/31/18 03/31/18 glipiZIDE [Glucotrol] 10 mg PO BID-W/MEALS 03/31/18 03/31/18 Previous Rx's Medication Instructions Recorded Clopidogrel [Plavix] 75 mg PO DAILY #30 tab 02/01/18 Meclizine [Antivert] 25 mg PO TID PRN #21 tab 03/31/18 Allergies Allergy/AdvReac Type Severity Reaction Status Date / Time tramadol [From Ultram] AdvReac Hallucinati Verified 01/05/19 00:04 ons Review of Systems ROS Other: All systems not noted in ROS Statement are negative. <Thu Cee - Last Filed: 01/05/19 01:05> ROS Other: All systems not noted in ROS Statement are negative. <Keshia Varela - Last Filed: 01/05/19 02:58> ROS Statement: Those systems with pertinent positive or pertinent negative responses have been documented in the HPI. Past Medical History Past Medical History: Cancer, Diabetes Mellitus, Hyperlipidemia, Hypertension, Vascular Disorder Additional Past Medical History / Comment(s): previous wound rt foot/ [place]; bladder cancer 1998 History of Any Multi-Drug Resistant Organisms: None Reported Past Surgical History: Adenoidectomy, Appendectomy, Bladder Surgery, Coronary Bypass/CABG, Tonsillectomy Additional Past Surgical History / Comment(s): AAA ,arterial femoral bypasses malini leg,CABG-3 vessel 1999 Past Anesthesia/Blood Transfusion Reactions: No Reported Reaction Additional Past Anesthesia/Blood Transfusion Reaction / Comment(s): no known hx of blood transfusions Past Psychological History: No Psychological Hx Reported Smoking Status: Former smoker Past Alcohol Use History: None Reported Past Drug Use History: None Reported - Past Family History Brother(s) Family Medical History: Cancer Additional Family Medical History / Comment(s): esophageal Ca Father Additional Family Medical History / Comment(s): AAA Mother Family Medical History: Dementia, Diabetes Mellitus <Thu Cee - Last Filed: 01/05/19 01:05> General Exam Limitations: no limitations General appearance: alert, in no apparent distress, other (Physical well- developed, well-nourished elderly male patient in no acute distress. Vital signs upon presentation are temperature 98.2F, pulse 85, respirations 18, blood pressure 157/72, pulse ox 96% on room air.) Eye exam: Present: other (Right periorbital hematoma) ENT exam: Present: other (Facial dressings are saturated with bright red blood) Respiratory exam: Present: normal lung sounds bilaterally. Absent: respiratory distress, wheezes, rales, rhonchi, stridor Cardiovascular Exam: Present: regular rate, normal rhythm, normal heart sounds. Absent: systolic murmur, diastolic murmur, rubs, gallop, clicks Neurological exam: Present: alert, oriented X3, CN II-XII intact Psychiatric exam: Present: normal affect, normal mood Skin exam: Present: warm, dry, intact, normal color. Absent: rash <Thu Cee - Last Filed: 01/05/19 01:05> Course Vital Signs 01/05/19 00:01 Temperature 98.2 F Pulse Rate 85 Respiratory 18 Rate Blood Pressure 157/72 O2 Sat by Pulse 96 Oximetry Medical Decision Making <Thu Cee - Last Filed: 01/05/19 01:05> <Keshia Varela - Last Filed: 01/05/19 02:58> - Medical Decision Making 83-year-old male patient presents to the emergency department today for eval uation of bleeding from surgical wounds. Patient had forehead flap closure to nose with skin grafting done earlier today. Patient reported bleeding from the wounds since. Patient is develops right periorbital swelling and hematoma. Vital signs are stable with normal blood pressure normal heart rate. I did discuss the case with the hand frame surgical elastic knitter on-call for Dr. Obregon who recommends transfer to [facility] for further evaluation by the surgical team. Did discuss this plan with the patient and family. He will be transported by EMS to [facility]. (Thu Cee) Personally saw and evaluated the patient. Patient was resistant to transferred to [facility] as he doesn't want his family have to make the drive however I discussed with him that surgeons need to reevaluate any immediate postoperative problems and he cannot be evaluated by a general surgeon at this hospital as he needs to be evaluated by a reconstructive surgeon. Family encouraged the patient to be compliant with plan for transfer and he finally agreed. Patient was hemodynamically stable upon time of transfer (Keshia Varela) Disposition - Out of Hospital Transfer - Req. Specs Out of Hospital Transfer - Requested Specifics: Other Emergency Center ([facility] - [facility]) <Thu Cee - Last Filed: 01/05/19 01:05> <Keshia Varela - Last Filed: 01/05/19 02:58> Clinical Impression: Post-op bleeding Disposition: OTHER INSTITUTION NOT DEFINED Condition: Serious Referrals: Philippe Cortés DO [Primary Care Provider] - 1-2 days
== END 2019-01-05 01:32 | disposition short-term general hospital (02) ==
LOC: EC 23:55
DX: L76.21 Postprocedural hemorrhage of skin and subcutaneous tissue following a dermatologic procedure (principal); H59.34 Postprocedural hematoma of eye and adnexa following other procedure; E11.9 Type 2 diabetes mellitus without complications; E78.5 Hyperlipidemia, unspecified; I10 Essential (primary) hypertension; Z87.891 Personal history of nicotine dependence; Z88.5 Allergy status to narcotic agent; Z79.82 Long term (current) use of aspirin; Z79.84 Long term (current) use of oral hypoglycemic drugs; Z79.899 Other long term (current) drug therapy; Z85.51 Personal history of malignant neoplasm of bladder; Z95.1 Presence of aortocoronary bypass graft; Z98.890 Other specified postprocedural states
CPT/HCPCS: 99284

== ENCOUNTER 2019-07-29 18:33 | Inpatient (IN) | payer MEDICARE ==
[2019-07-29] MEDS ORDERED: SODIUM CHLORIDE 0.9% 1,000 ML IV STA (18:40)
[2019-07-29 18:41] LABS: Glucose,Whole Blood 156 mg/dL (75-99)
--- NOTE | 2019-07-29 18:44 | ED ---
General Adult HPI - General Stated complaint: Stroke Time Seen by Provider: 07/29/19 18:34 Source: patient, family, EMS, RN notes reviewed Mode of arrival: EMS Limitations: altered mental status, physical limitation - History of Present Illness Initial comments: Patient is a pleasant 84-year-old male presenting to the emergency department by EMS with concerns for stroke. Family arrived shortly after and does help provide history. Last known well was 2:30 PM. This was as witnessed by son. Patient was found by prior to arrival with weakness. Patient arrives and does have garbled speech with limited ability to express himself. Patient does have right arm weakness that was flaccid however has improved on arrival to the emergency department. Patient does follow commands however needs to be at times told repetitively. - Related Data Home Medications Medication Instructions Recorded Confirmed Atenolol [Tenormin] 25 mg PO DAILY 11/03/16 07/29/19 Lovastatin [Mevacor] 80 mg PO HS 11/03/16 07/29/19 Cholecalciferol [Vitamin D3 (25 5,000 units PO DAILY 09/19/17 07/29/19 Mcg = 1000 Iu)] Aspirin EC [Ecotrin] 325 mg PO DAILY 03/31/18 07/29/19 glipiZIDE [Glucotrol] 10 mg PO BID-W/MEALS 03/31/18 07/29/19 amLODIPine [Norvasc] 5 mg PO BID 07/29/19 07/29/19 Previous Rx's Medication Instructions Recorded Clopidogrel [Plavix] 75 mg PO DAILY #30 tab 02/01/18 Allergies Allergy/AdvReac Type Severity Reaction Status Date / Time tramadol [From Ultram] AdvReac Hallucinati Verified 07/29/19 18:51 ons Review of Systems ROS Statement: Those systems with pertinent positive or pertinent negative responses have been documented in the HPI. ROS Other: All systems not noted in ROS Statement are negative. Limitations: ROS unobtainable due to patients medical condition Past Medical History Past Medical History: Cancer, Diabetes Mellitus, Hyperlipidemia, Hypertension, Vascular Disorder Additional Past Medical History / Comment(s): previous wound rt foot/ [place]; bladder cancer 1998 History of Any Multi-Drug Resistant Organisms: None Reported Past Surgical History: Adenoidectomy, Appendectomy, Bladder Surgery, Coronary Bypass/CABG, Tonsillectomy Additional Past Surgical History / Comment(s): AAA ,arterial femoral bypasses malini leg,CABG-3 vessel 2000 Past Anesthesia/Blood Transfusion Reactions: No Reported Reaction Additional Past Anesthesia/Blood Transfusion Reaction / Comment(s): no known hx of blood transfusions Past Psychological History: No Psychological Hx Reported Smoking Status: Former smoker Past Alcohol Use History: None Reported Past Drug Use History: None Reported - Past Family History Brother(s) Family Medical History: Cancer Additional Family Medical History / Comment(s): esophageal Ca Father Additional Family Medical History / Comment(s): AAA Mother Family Medical History: Dementia, Diabetes Mellitus General Exam Limitations: altered mental status, physical limitation General appearance: alert Head exam: Present: normocephalic Eye exam: Present: normal appearance, PERRL, EOMI. Absent: nystagmus ENT exam: Present: normal oropharynx Neck exam: Present: normal inspection Respiratory exam: Present: normal lung sounds bilaterally Cardiovascular Exam: Present: regular rate, normal rhythm GI/Abdominal exam: Present: soft. Absent: tenderness Extremities exam: Present: normal inspection Neurological exam: Present: alert, CN II-XII intact (Except for right facial droop) Expanded Neurological exam: Present: protecting the airway, other (Garbled speech) Cranial nerves: EOM's Intact: Normal, Facial Sensation: Normal Sensory exam: Upper Extremity Light Touch: Normal, Lower Extremity Light Touch: Normal Motor strength exam: RUE: 3, LUE: 5, RLE: 5, LLE: 5 Eye Response: (4) open spontaneously Motor Response: (6) obeys commands Verbal Response: incomprehensible sounds Psychiatric exam: Present: normal affect, normal mood Skin exam: Present: normal color Course Vital Signs 07/29/19 07/29/19 07/29/19 18:34 19:00 19:15 Temperature 98.4 F Pulse Rate 66 62 66 Respiratory 18 18 18 Rate Blood Pressure 190/87 186/77 189/101 O2 Sat by Pulse 97 97 98 Oximetry 07/29/19 19:30 Temperature Pulse Rate 75 Respiratory 18 Rate Blood Pressure 192/97 O2 Sat by Pulse 98 Oximetry - Reevaluation(s) Reevaluation #1: 07/29/19 19:08 Case was discussed with Dr. Bell who will review CT and consider if patient is a candidate. Patient questioned multiple times. Patient tries to write responses however is writing is not legible, even by the family. Patient has difficulty communicating however does appear that onset was around 4 PM. Patient confirms this and the affirmative manner several times. Family is present. Patient is provided risk and benefits of TPA and states he is not interested in having TPA. Family is also present during this conversation. 07/29/19 19:44 Dr. Pablo called back and requested brilenta and Lipitor. He states patient is not a TPA candidate. He is comfortable with admission a patient here 07/29/19 20:[address] anderson, covering for Dr. Quarles, who admits for Dr. Cortés. He will admit and is aware that neurology is not available tonight. Neurology will be available tomorrow. Patient and family updated. 07/29/19 20:19 Patient does have some improvement of symptoms. Right arm strength has significantly improved. Speech is somewhat more intelligible. EKG Findings - EKG Comments: EKG Findings:: Normal sinus rhythm 68. OR 166. QRS 120. QT 404. QTC 429. Normal axis. Lateral T wave inversion. Q wave in lead III. Medical Decision Making - Lab Data Result diagrams: 07/29/19 18:40 07/29/19 18:40 Lab Results 07/29/19 07/29/19 07/29/19 Range/Units 18:38 18:40 18:40 WBC 15.7 H (3.8-10.6) k/uL RBC 4.51 (4.30-5.90) m/uL Hgb 14.1 (13.0-17.5) gm/dL Hct 41.5 (39.0-53.0) % MCV 92.0 (80.0-100.0) fL MCH 31.2 (25.0-35.0) pg MCHC 33.9 (31.0-37.0) g/dL RDW 15.1 (11.5-15.5) % Plt Count 197 (150-450) k/uL Neutrophils % (Manual) 30 % Lymphocytes % (Manual) 67 % Monocytes % (Manual) 3 % Neutrophils # (Manual) 4.71 (1.3-7.7) k/uL Lymphocytes # (Manual) 10.52 H (1.0-4.8) k/uL Monocytes # (Manual) 0.47 (0-1.0) k/uL Nucleated RBCs 0 (0-0) /100 WBC Manual Slide Review Performed RBC Morphology Normal PT (9.0-12.0) sec INR (<1.2) APTT (22.0-30.0) sec Sodium 136 L (137-145) mmol/L Potassium 5.2 H (3.5-5.1) mmol/L Chloride 105 (98-107) mmol/L Carbon Dioxide 21 L (22-30) mmol/L Anion Gap 10 mmol/L BUN 40 H (9-20) mg/dL Creatinine 2.06 H (0.66-1.25) mg/dL Est GFR (CKD-EPI)AfAm 34 (>60 ml/min/1.73 sqM) Est GFR (CKD-EPI)NonAf 29 (>60 ml/min/1.73 sqM) Glucose 164 H (74-99) mg/dL POC Glucose (mg/dL) 156 H (75-99) mg/dL POC Glu Pre Kindergarten Teacher ID Shavonne Hernandez Calcium 9.3 (8.4-10.2) mg/dL Total Bilirubin 0.2 (0.2-1.3) mg/dL AST 21 (17-59) U/L ALT 19 L (21-72) U/L Alkaline Phosphatase 75 (38-126) U/L Total Creatine Kinase (55-170) U/L CK-MB (CK-2) (0.0-2.4) ng/mL CK-MB (CK-2) Rel Index Troponin I (0.000-0.034) ng/mL Total Protein 6.9 (6.3-8.2) g/dL Albumin 3.9 (3.5-5.0) g/dL 07/29/19 07/29/19 Range/Units 18:40 18:40 WBC (3.8-10.6) k/uL RBC (4.30-5.90) m/uL Hgb (13.0-17.5) gm/dL Hct (39.0-53.0) % MCV (80.0-100.0) fL MCH (25.0-35.0) pg MCHC (31.0-37.0) g/dL RDW (11.5-15.5) % Plt Count (150-450) k/uL Neutrophils % (Manual) % Lymphocytes % (Manual) % Monocytes % (Manual) % Neutrophils # (Manual) (1.3-7.7) k/uL Lymphocytes # (Manual) (1.0-4.8) k/uL Monocytes # (Manual) (0-1.0) k/uL Nucleated RBCs (0-0) /100 WBC Manual Slide Review RBC Morphology PT 9.9 (9.0-12.0) sec INR 0.9 (<1.2) APTT 23.2 (22.0-30.0) sec Sodium (137-145) mmol/L Potassium (3.5-5.1) mmol/L Chloride (98-107) mmol/L Carbon Dioxide (22-30) mmol/L Anion Gap mmol/L BUN (9-20) mg/dL Creatinine (0.66-1.25) mg/dL Est GFR (CKD-EPI)AfAm (>60 ml/min/1.73 sqM) Est GFR (CKD-EPI)NonAf (>60 ml/min/1.73 sqM) Glucose (74-99) mg/dL POC Glucose (mg/dL) (75-99) mg/dL POC Glu Pre Kindergarten Teacher ID Calcium (8.4-10.2) mg/dL Total Bilirubin (0.2-1.3) mg/dL AST (17-59) U/L ALT (21-72) U/L Alkaline Phosphatase (38-126) U/L Total Creatine Kinase 41 L (55-170) U/L CK-MB (CK-2) 1.7 (0.0-2.4) ng/mL CK-MB (CK-2) Rel Index 4.1 Troponin I <0.012 (0.000-0.034) ng/mL Total Protein (6.3-8.2) g/dL Albumin (3.5-5.0) g/dL - Radiology Data Radiology results: image reviewed (Computed tomography scan of the brain does not show acute intercranial abnormality. Encephalomalacia from remote vascular injuries. Senescent changes.) Disposition Clinical Impression: Cerebrovascular accident (CVA) Disposition: ADMITTED IP TO THIS [facility] Condition: Serious Is patient prescribed a controlled substance at d/c from ED?: No Referrals: Philippe Cortés DO [Primary Care Provider] - 1-2 days Decision Time: 20:20
[2019-07-29 18:59] LABS: Albumin 3.9 g/dL (3.5-5.0); Calcium 9.3 mg/dL (8.4-10.2); INR 0.9 (<1.2); Partial Thromboplastin Time 23.2 sec (22.0-30.0); Potassium 5.2 mmol/L (3.5-5.1); Prothrombin Time 9.9 sec (9.0-12.0); Total Bilirubin 0.2 mg/dL (0.2-1.3); Total Protein 6.9 g/dL (6.3-8.2)
[2019-07-29 19:04] LABS: HCT 41.5 % (39.0-53.0); HGB 14.1 gm/dL (13.0-17.5); MCH 31.2 pg (25.0-35.0); MCHC 33.9 g/dL (31.0-37.0); Mean Platelet Volume 6.9; Platelet Count 197 k/uL (150-450); RBC 4.51 m/uL (4.30-5.90); RDW 15.1 % (11.5-15.5); WBC 15.7 k/uL (3.8-10.6)
--- NOTE | 2019-07-29 19:05 | CT ---
EXAMINATION TYPE: CT brain wo con for TPA DATE OF EXAM: 07/29/2019 COMPARISON: CT brain 03/31/2018 HISTORY: Right sided facial paralysis, slurred speech. TECHNIQUE: 1. Axial CT images of the head without contrast. Bone windows and sagittal and coronal reformats were reviewed. 2. CT DLP: 1175.8 mGycm Automated exposure control for dose reduction was used. FINDINGS: CT Head: No acute intracranial hemorrhage. Scattered periventricular and deep cortical white matter areas of l ow attenuation, likely representing sequela of chronic microangiopathy. Geographic areas of encephalo malacia within the right frontal lobe, right caudate head, and left basal ganglia redemonstrated. No acute loss of cornejo-white matter differentiation to suggest large territorial infarction. Mild cerebral volume loss with appropriate size and morphology of the ventricular system. No extra-ax ial fluid collections or midline shift of structures. Patent basal cisterns. No depressed or displaced calvarial fracture. Intracranial vascular calcifications. Visualized parana sandoval sinuses and temporal bone structures are well aerated. Surgically absent lenses. Dermal nodule ov er the left frontal region. IMPRESSION: 1. No acute intracranial abnormality. 2. Scattered areas of encephalomalacia from remote vascular injuries. Senescent changes including cer ebral volume loss and sequale of chronic microangiopathy. 3. If there is sufficient clinical concern for acute ischemia, further evaluation with brain MRI is r ecommended.
[2019-07-29 19:13] LABS: Creatine Kinase 41 U/L (55-170)
[2019-07-29 19:25] LABS: Creatine Kinase MB 1.7 ng/mL (0.0-2.4); Lymphocytes # (M) 10.52 k/uL (1.0-4.8); Monocytes # (M) 0.47 k/uL (0-1.0); Neutrophils % (M) 30 %; Nucleated Red Blood Cells 0 /100 WBC (0-0); Total Cells Counted 100; Troponin I <0.012 ng/mL (0.000-0.034)
[2019-07-29] MEDS ORDERED: ATORVASTATIN 80 MG TAB PO STA (19:44)
--- NOTE | 2019-07-29 19:52 | CT ---
EXAMINATION TYPE: CT angio head neck DATE OF EXAM: 07/29/2019 HISTORY: Right sided facial paralysis, slurred speech. COMPARISON: CT brain same day CT DLP: 428.7 mGycm. Automated Exposure Control for Dose Reduction was Utilized. TECHNIQUE: CTA scan of the neck is performed with IV Contrast, patient injected with 65 mL of Isovue 370, axial images are obtained, coronal and sagittal reformatted images are reviewed. Three-D recons tructed images are created on an independent workstation and reviewed. FINDINGS: CTA neck: Three-vessel arch. Calcified and noncalcified atherosclerotic plaque at the aortic arch and arch osti a without significant ostial stenosis. Mildly tortuous common carotid arteries. Calcified plaque at t he carotid bulbs extending into the right greater than left proximal internal carotid arteries contri buting to mild-moderate stenosis bilaterally. External carotid arteries are patent bilaterally. Vertebral arteries arise from the subclavian arteries. Calcified plaque at the vertebral artery origi ns bilaterally contribute to mild-moderate stenosis. Superior segment right upper lobe nodules measuring 9 x 6 mm and 4 x 4 millimeters (series 401 image 43). Biapical emphysematous changes and pleural scarring. CTA head: Calcified plaque of the petrous through supraclinoid internal carotid arteries, otherwise patent. The proximal middle and anterior cerebral arteries are patent. Anterior and posterior communicating salo taran are visualized. Distal vertebral and basilar arteries patent. Posterior cerebral arteries are patent. IMPRESSION: 1. CTA of the head demonstrates no proximal vessel occlusion. 2. Atherosclerotic plaques at the carotid bifurcations. No severe arterial stenosis. 3. Right upper lobe lung nodules. Dedicated chest CT is recommended nonemergently.
[2019-07-29] MEDS ORDERED: TICAGRELOR 90 MG TAB PO STA (19:53)
[2019-07-29] MEDS ORDERED: ASPIRIN 81 MG PO STA (20:04)
[2019-07-29] MEDS ORDERED: SODIUM CHLORIDE 0.9% 1,000 ML IV SCH (20:30)
--- NOTE | 2019-07-29 20:41 | XR ---
EXAMINATION TYPE: XR chest 2V DATE OF EXAM: 07/29/2019 COMPARISON: Chest radiograph 11/03/2016 HISTORY: Altered mental status TECHNIQUE: Frontal and lateral views of the chest are obtained. FINDINGS: CABG changes. Prominent cardiac silhouette. Atherosclerotic calcifications of the aorta. L ungs are hyperinflated with diffuse interstitial prominence, likely from underlying emphysematous pacheco nges. No focal airspace consolidation. No pleural effusion or pneumothorax. Diffuse osseous demineral ization. IMPRESSION: No acute cardiopulmonary process.
[2019-07-29 23:37] VITALS: BMI 23.9
[2019-07-30] MEDS ORDERED: METOPROLOL TARTRATE 25 MG TAB PO STA (00:37)
[2019-07-30] MEDS ORDERED: amLODIPine 5 MG TAB PO STA (00:40)
[2019-07-30 02:36] LABS: Cholesterol 176 mg/dL (<200); HDL Cholesterol 26 mg/dL (40-60); LDL Cholesterol,Calculated 83 mg/dL (0-99); Triglycerides 337 mg/dL (<150)
[2019-07-30] MEDS ORDERED: hydrALAZINE HCL 25 MG TAB PO STA ×2 (03:01→04:53)
[2019-07-30] MEDS: glipiZIDE 5 MG TAB PO SCH ×2 (04:55→17:16)
[2019-07-30 06:04] LABS: Glucose,Whole Blood 225 mg/dL (75-99)
[2019-07-30 06:28] LABS: HCT 46.5 % (39.0-53.0); HGB 14.5 gm/dL (13.0-17.5); MCH 29.3 pg (25.0-35.0); MCHC 31.1 g/dL (31.0-37.0); MCV 94.2 fL (80.0-100.0); Mean Platelet Volume 7.5; Platelet Count 203 k/uL (150-450); RBC 4.93 m/uL (4.30-5.90); RDW 15.5 % (11.5-15.5); WBC 13.5 k/uL (3.8-10.6)
[2019-07-30 06:46] LABS: Albumin 4.1 g/dL (3.5-5.0); Calcium 9.7 mg/dL (8.4-10.2); Magnesium 1.7 mg/dL (1.6-2.3); Potassium 4.9 mmol/L (3.5-5.1); Total Bilirubin 0.6 mg/dL (0.2-1.3); Total Protein 7.3 g/dL (6.3-8.2)
[2019-07-30 07:01] LABS: Basophils # (M) 0.27 k/uL (0-0.2); Lymphocytes # (M) 4.86 k/uL (1.0-4.8); Monocytes # (M) 0.41 k/uL (0-1.0); Neutrophils % (M) 59 %; Nucleated Red Blood Cells 0 /100 WBC (0-0); Total Cells Counted 100
[2019-07-30 07:02] LABS: Reactive Lymphocytes Present
[2019-07-30] MEDS ORDERED: amLODIPine 5 MG TAB PO SCH (09:00)
[2019-07-30] MEDS ORDERED: ASPIRIN 81 MG PO SCH (09:00)
[2019-07-30 11:22] LABS: Glucose,Whole Blood 192 mg/dL (75-99)
--- NOTE | 2019-07-30 11:45 | P.CNNES ---
History of Present Illness Consult date: 07/30/19 Reason for Consult: CVA Chief complaint: Acute CVA History of Present Illness: Patient is a 84-year-old right-handed male who is otherwise healthy, except for diabetes, hypertension, peripheral arterial disease, tobacco user, never had any history of stroke. Yesterday at around 2:30 PM patient developed acute onset of slurred speech, garbled speech, right-sided weakness. Family became aware of stroke symptoms at around 6 PM. Patient arrived to the ER at 6:34 PM. Patient underwent computed tomography scan of the head, which revealed no acute abnormality. Scattered areas of encephalomalacia from remote vascular injuries. There is chronic microangiopathy. CTA of the head demonstrates no proximal vessel occlusion. Atherosclerotic plaques in the carotid bifurcation. No severe arterial stenosis. Right upper lobe lung nodules. Dedicated CT chest is recommended non-emergently. This will be assessed by primary physician. Stroke neurologist/Neuro intervention seed corn production manager, Dr. Garcia was contacted by ED staff. TPA was recommended but patient declined. Patient was also probably outside the window of TPA, by the time workup was all completed. Patient overnight was noted to have improvement in the right arm and leg, but continues to have significant slurred speech, and dysphagia. Patient has history of hypertension, diabetes for last 19 years, hypercholesterolemia, tobacco use since he was 20s. His could not tell how much disease smoke, as he hides. Patient does take aspirin 325 mg and Plavix 75 mg daily, compliant with medication. EKG showed normal sinus rhythm, chest x-ray showed no acute cardiopulmonary process. Patient's last hemoglobin A1c 7.5 on 02/01/2018. His total cholester ol as of yesterday is 176, LDH 83, HDL 26, triglycerides 337. Liver panel is normal. BUN 35, creatinine 1.76. Review of Systems Cannot assess due to aphasia. ROS unobtainable: due to mental status Past Medical History Past Medical History: Cancer, Diabetes Mellitus, Hyperlipidemia, Hypertension, Myocardial Infarction ([place]), Vascular Disorder Additional Past Medical History / Comment(s): previous wound rt foot/ [place]; bladder cancer 1998, PAD, Last Myocardial Infarction Date:: 1999 History of Any Multi-Drug Resistant Organisms: None Reported Past Surgical History: Adenoidectomy, Appendectomy, Bladder Surgery, Coronary Bypass/CABG, Tonsillectomy Additional Past Surgical History / Comment(s): AAA ,arterial femoral bypasses malini leg,CABG-3 vessel 2000 Past Anesthesia/Blood Transfusion Reactions: No Reported Reaction Additional Past Anesthesia/Blood Transfusion Reaction / Comment(s): no known hx of blood transfusions Past Psychological History: No Psychological Hx Reported Additional Psychological History / Comment(s): . No experience. 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 No international travel. No animal exposures. Sundt presents with him to clinic Smoking Status: Light tobacco smoker Past Alcohol Use History: None Reported Additional Past Alcohol Use History / Comment(s): quit smoking approx 2016,smoked approx 60 yrs 1ppd, smokes occasionally Past Drug Use History: None Reported - Past Family History Brother(s) Family Medical History: Cancer Additional Family Medical History / Comment(s): esophageal Ca Father Additional Family Medical History / Comment(s): AAA Mother Family Medical History: Dementia, Diabetes Mellitus Medications and Allergies Home Medications Medication Instructions Recorded Confirmed Type Atenolol [Tenormin] 25 mg PO DAILY 11/03/16 07/29/19 History Lovastatin [Mevacor] 80 mg PO HS 11/03/16 07/29/19 History Cholecalciferol [Vitamin D3 (25 5,000 units PO DAILY 09/19/17 07/29/19 History Mcg = 1000 Iu)] Clopidogrel [Plavix] 75 mg PO DAILY #30 tab 02/01/18 07/29/19 Rx Aspirin EC [Ecotrin] 325 mg PO DAILY 03/31/18 07/29/19 History glipiZIDE [Glucotrol] 10 mg PO BID-W/MEALS 03/31/18 07/29/19 History amLODIPine [Norvasc] 5 mg PO BID 07/29/19 07/29/19 History Allergies Allergy/AdvReac Type Severity Reaction Status Date / Time tramadol [From Ultram] AdvReac Hallucinati Verified 07/29/19 18:51 ons Physical Examination - Vital Signs Vital Signs: Vital Signs Temp Pulse Pulse Resp BP BP BP 07/30/19 08:00 98.7 F 101 H 20 178/77 07/30/19 04:00 98 F 92 16 198/79 07/30/19 03:27 74 206/88 07/30/19 02:00 74 203/87 07/30/19 00:30 98 F 70 16 210/96 207/93 07/29/19 20:45 97.9 F 80 16 149/101 07/29/19 20:30 82 18 186/78 07/29/19 19:30 75 18 192/97 07/29/19 19:15 66 18 189/101 07/29/19 19:00 62 18 186/77 07/29/19 18:34 98.4 F 66 18 190/87 Pulse Ox 07/30/19 08:00 92 L 07/30/19 04:00 94 L 07/30/19 03:27 07/30/19 02:00 07/30/19 00:30 97 07/29/19 20:45 98 07/29/19 20:30 98 07/29/19 19:30 98 07/29/19 19:15 98 07/29/19 19:00 97 07/29/19 18:34 97 Intake and Output 07/29/19 07/30/19 07/30/19 22:59 06:59 14:59 Intake Total 100 550 Output Total 828 387 4588 Balance - Intake: Intake, IV Titration 100 500 Amount Sodium Chloride 0.9% 1, 100 500 000 ml @ 100 mls/hr IV . Q10H JO Rx#:[id number] Oral 50 Output: Urine 129 132 0573 Uretheral ([place]) 1400 Other: # Bowel Movements 1 Weight 75.75 kg 69.8 kg On examination patient is an elderly male, in no distress. Patient is mildly somnolent, but then became alert awake, follows commands. Patient is almost mute, severely dysarthric with oral lingual buccal dysarthria. Patient could not tell me his name, or name objects presented like "eyeglasses". On cranial nerve examination pupils are round and reacting, visual avitia could not be tested reliably. He has right facial weakness, central type. He could not protrude his tongue out. On muscle strength testing there is mild right pronator drift. The strength appears fairly normal, except right linux engineer is 5-, left deltoid is 5- (from orthopedic issue). Lower extremities are normal. Reflexes are diminished and plantar is upgoing on the right, whereas down on the left. Sensory touch and temperature is equal. No ataxia for [id number] testing. Tone and bulk of muscles normal. S1 and S2 was audible. Results - Laboratory Findings CBC and BMP: 07/30/19 05:49 07/30/19 05:49 Abnormal Lab Findings: Abnormal Labs 07/29/19 07/29/19 07/29/19 18:38 18:40 18:40 WBC 15.7 H Neutrophils # (Manual) Lymphocytes # (Manual) 10.52 H Basophils # (Manual) Sodium 136 L Potassium 5.2 H Carbon Dioxide 21 L BUN 40 H Creatinine 2.06 H Glucose 164 H POC Glucose (mg/dL) 156 H ALT 19 L Total Creatine Kinase Triglycerides HDL Cholesterol 07/29/19 07/29/19 07/30/19 18:40 18:40 05:49 WBC 13.5 H Neutrophils # (Manual) 7.97 H Lymphocytes # (Manual) 4.86 H Basophils # (Manual) 0.27 H Sodium Potassium Carbon Dioxide BUN Creatinine Glucose POC Glucose (mg/dL) ALT Total Creatine Kinase 41 L Triglycerides 337 H HDL Cholesterol 26 L 07/30/19 07/30/19 07/30/19 05:49 06:03 11:21 WBC Neutrophils # (Manual) Lymphocytes # (Manual) Basophils # (Manual) Sodium 136 L Potassium Carbon Dioxide 20 L BUN 35 H Creatinine 1.79 H Glucose 233 H POC Glucose (mg/dL) 225 H 192 H ALT 18 L Total Creatine Kinase Triglycerides HDL Cholesterol Assessment and Plan Assessment: * Acute ischemic CVA, 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 Patient has mild right facial brachial weakness but more profound dysarthria and dysphagia. * Diabetes, not well controlled as per last A1c 7.5. * Hyperlipidemia * Hypertension * Tobacco user * Peripheral arterial disease. Plan: Patient prior to admission has been on dual antiplatelet medications including aspirin 325 mg and Plavix 75 mg, compliant with medication. He is also on statins. Patient has been started on Brillinta 90 mg twice a day as per recommendation from neuro-intervention. I agree with, as patient has failed Plavix. Patient will be continued on aspirin 81 mg daily. We will check MRI of the brain to localize CVA. Awaiting hemoglobin A1c. Lipids are well controlled. Suggest tobacco cessation. Agree with checking 2-D echo to rule out embolic source. Patient will need prolonged speech therapy, PT and OT. Speech therapist currently evaluating patient. Nothing by mouth until cleared by speech therapist. Neurology will follow. Discussed with patient's and daughter.
--- NOTE | 2019-07-30 16:07 | FL ---
EXAMINATION TYPE: FL barium swallow w video DATE OF EXAM: 07/30/2019 MODIFIED SWALLOW / DEGLUTITION STUDY CLINICAL HISTORY: Dysphagia. TECHNIQUE: Deglutition study is performed utilizing nectar thick liquid barium, barium thick applesa uce, and barium coated cracker. 1 minute and 57 seconds of fluoroscopy time was utilized. 0 images we re saved as the examination was video recorded. COMPARISON: None. FINDINGS: The oral and pharyngeal phases show satisfactory initiation and propagation with all modali ties tested. Abnormal mastication. Silent aspiration seen with the nectar thick consistency. Transien t penetration was also seen with the nectar thick consistency. No laryngeal penetration or aspiration was seen with the barium thick applesauce or barium coated cracker. IMPRESSION: Silent aspiration with nectar thick consistency. Please refer to speech therapist notes for further details if necessary.
--- NOTE | 2019-07-30 16:54 | MR ---
EXAMINATION TYPE: MR brain wo con DATE OF EXAM: 07/30/2019 COMPARISON: None HISTORY: Right sided facial paralysis, slurred speech, acute CVA Standard multiplanar, multisequence MRI departmental protocol Multiplanar, multisequence images of the brain were acquired. Diffusion weighted imaging was performe d. FINDINGS: There is cerebral cortical atrophy. There is on the diffusion images gyriform increased sig nal through a large area of the left anterior temporal lobe extending into the left parietal lobe con sistent with acute infarct. There is no midline shift. There is no sign of intracranial hemorrhage. T he brainstem is intact. There are numerous patchy areas of abnormal increased signal on the FLAIR images in the periventricul ar white matter with coalescent areas that measure up to 1.5 cm. There is 3 x 1.5 cm area of increase d signal in the right frontal lobe cornejo and white matter. The brainstem is intact. Cerebellum is inta ct. Sella turcica appears normal. IMPRESSION: There is evidence of acute left temporal lobe ischemic infarct. there is evidence of old cortical infarct right frontal lobe. Diffuse atrophy. Extensive white matter changes probably due to chronic small vessel ischemia. Demyel inating disease not excluded.
[2019-07-30 17:00] LABS: Glucose,Whole Blood 185 mg/dL (75-99)
[2019-07-30] MEDS: amLODIPine 5 MG TAB PO SCH (17:15)
[2019-07-30] MEDS: ATORVASTATIN 80 MG TAB PO SCH (17:15)
[2019-07-30] MEDS: TICAGRELOR 90 MG TAB PO SCH (17:15)
[2019-07-30] MEDS: ASPIRIN 81 MG PO SCH (17:15)
[2019-07-30] MEDS: ATENOLOL 25 MG TAB PO SCH (17:16)
[2019-07-30] MEDS: SODIUM CHLORIDE 0.9% 1,000 ML IV SCH ×2 (17:25→21:25)
--- NOTE | 2019-07-30 17:32 | P.HPIM ---
History of Present Illness H&P Date: 07/30/19 Chief Complaint: Difficulty in speech Patient is a 84-year-old male with a known history of hypertension, diabetes type 2, coronary artery disease history of CABG and stent placement, peripheral vascular disease and I aortofemoral bypass surgery, abdominal aortic aneurysm re pair, previous history of smoking was initially brought to the hospital by his family by EMS due to difficulty in speech and concern for acute stroke. As per his at bedside., Family arrived from [facility] around 2 AM last night. His son brought something to eat at 2:30 AM. Patient was able to eat and went out to get his mail. After arriving around 3:30 AM patient suddenly developed difficulty speech, slurring speech and right-sided weakness. Around 6:30 AM family called EMS and patient was brought to Hospital. CT head revealed no acute abnormality. Scattered areas of encephalomalacia from remote vascular injuries. There is chronic microangiopathy. CTA of the head demonstrates no proximal vessel occlusion. Atherosclerotic plaques in the carotid bifurcation. No severe arterial stenosis. Right upper lobe lung nodules. Dedicated CT chest is recommended non-emergently. Stroke neurologist/Neuro intervention distribution sales manager, Dr. Garcia was contacted by ED staff. TPA was recommended but patient declined. Patient overnight was noted to have improvement in the right arm and leg, but continues to have significant slurred speech, and dysphagia. Modified swallow study showed silent aspiration with nectar thick consistency. Review of Systems Complete review of systems could not be obtained from the patient. Past Medical History Past Medical History: Cancer, Diabetes Mellitus, Hyperlipidemia, Hypertension, Myocardial Infarction ([place]), Vascular Disorder Additional Past Medical History / Comment(s): previous wound rt foot/ [place]; bladder cancer 1998, PAD, Last Myocardial Infarction Date:: 1999 History of Any Multi-Drug Resistant Organisms: None Reported Past Surgical History: Adenoidectomy, Appendectomy, Bladder Surgery, Coronary Bypass/CABG, Tonsillectomy Additional Past Surgical History / Comment(s): AAA ,arterial femoral bypasses malini leg,CABG-3 vessel 1999 Past Anesthesia/Blood Transfusion Reactions: No Reported Reaction Additional Past Anesthesia/Blood Transfusion Reaction / Comment(s): no known hx of blood transfusions Past Psychological History: No Psychological Hx Reported Additional Psychological History / Comment(s): . No experience. 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 No international travel. No animal exposures. presents with him to clinic Smoking Status: Light tobacco smoker Past Alcohol Use History: None Reported Additional Past Alcohol Use History / Comment(s): quit smoking approx 2016,smoked approx 60 yrs 1ppd, smokes occasionally Past Drug Use History: None Reported - Past Family History Brother(s) Family Medical History: Cancer Additional Family Medical History / Comment(s): esophageal Ca Father Additional Family Medical History / Comment(s): AAA Mother Family Medical History: Dementia, Diabetes Mellitus Medications and Allergies Home Medications Medication Instructions Recorded Confirmed Type Atenolol [Tenormin] 25 mg PO DAILY 11/03/16 07/29/19 History Lovastatin [Mevacor] 80 mg PO HS 11/03/16 07/29/19 History Cholecalciferol [Vitamin D3 (25 5,000 units PO DAILY 09/19/17 07/29/19 History Mcg = 1000 Iu)] Clopidogrel [Plavix] 75 mg PO DAILY #30 tab 02/01/18 07/29/19 Rx Aspirin EC [Ecotrin] 325 mg PO DAILY 03/31/18 07/29/19 History glipiZIDE [Glucotrol] 10 mg PO BID-W/MEALS 03/31/18 07/29/19 History amLODIPine [Norvasc] 5 mg PO BID 07/29/19 07/29/19 History Allergies Allergy/AdvReac Type Severity Reaction Status Date / Time tramadol [From Ultram] AdvReac Hallucinati Verified 07/29/19 18:51 ons Physical Exam Vitals: Vital Signs Temp Pulse Pulse Resp BP BP BP 07/30/19 11:37 97.9 F 86 20 128/67 07/30/19 08:00 98.7 F 101 H 20 178/77 07/30/19 04:00 98 F 92 16 198/79 07/30/19 03:27 74 206/88 07/30/19 02:00 74 203/87 07/30/19 00:30 98 F 70 16 210/96 207/93 07/29/19 20:45 97.9 F 80 16 149/101 07/29/19 20:30 82 18 186/78 07/29/19 19:30 75 18 192/97 07/29/19 19:15 66 18 189/101 07/29/19 19:00 62 18 186/77 07/29/19 18:34 98.4 F 66 18 190/87 Pulse Ox 07/30/19 11:37 96 07/30/19 08:00 92 L 07/30/19 04:00 94 L 07/30/19 03:27 07/30/19 02:00 07/30/19 00:30 97 07/29/19 20:45 98 07/29/19 20:30 98 07/29/19 19:30 98 07/29/19 19:15 98 07/29/19 19:00 97 07/29/19 18:34 97 Intake and Output 07/29/19 07/30/19 07/30/19 22:59 06:59 14:59 Intake Total 100 550 Output Total 231 253 5686 Balance - Intake: Intake, IV Titration 100 500 Amount Sodium Chloride 0.9% 1, 100 500 000 ml @ 100 mls/hr IV . Q10H JO Rx#:[id number] Oral 50 Output: Urine 841 740 [id number] Uretheral ([place]) 1400 Other: # Bowel Movements 1 Weight 75.75 kg 69.8 kg PHYSICAL EXAMINATION: Patient is lying in the bed comfortably, no acute distress, awake alert and oriented but could not communicate well... HEENT: Normocephalic. Neck is supple. Pupils reactive. Nostrils clear. Oral cavity is moist. Ears reveal no drainage. Neck reveals no JVD, carotid bruits, or thyromegaly. CHEST EXAMINATION: Trachea is central. Symmetrical expansion. Bibasilar dimin ished air entry. Lung avitia clear to auscultation and percussion. CARDIAC: Normal S1, S2 with no gallops. No murmurs ABDOMEN: Soft. Bowel sounds normal. No organomegaly. No abdominal bruits. Extremities: reveal no edema. No clubbing or cyanosis Neurologically awake, alert, oriented. Right-sided sided weakness. Patient does have slurred speech and difficulty speaking. Skin: No rash or skin lesions. Psychiatric: Coperative. Could not be assessed completely. Musculoskeletal: No joint swelling or deformity. Results CBC & Chem 7: 07/30/19 05:49 07/30/19 05:49 Labs: Abnormal Lab Results - Last 24 Hours (Table) 07/29/19 07/29/19 07/29/19 Range/Units 18:38 18:40 18:40 WBC 15.7 H (3.8-10.6) k/uL Neutrophils # (Manual) (1.3-7.7) k/uL Lymphocytes # (Manual) 10.52 H (1.0-4.8) k/uL Basophils # (Manual) (0-0.2) k/uL Sodium 136 L (137-145) mmol/L Potassium 5.2 H (3.5-5.1) mmol/L Carbon Dioxide 21 L (22-30) mmol/L BUN 40 H (9-20) mg/dL Creatinine 2.06 H (0.66-1.25) mg/dL Glucose 164 H (74-99) mg/dL POC Glucose (mg/dL) 156 H (75-99) mg/dL ALT 19 L (21-72) U/L Total Creatine Kinase (55-170) U/L Triglycerides (<150) mg/dL HDL Cholesterol (40-60) mg/dL 07/29/19 07/29/19 07/30/19 Range/Units 18:40 18:40 05:49 WBC 13.5 H (3.8-10.6) k/uL Neutrophils # (Manual) 7.97 H (1.3-7.7) k/uL Lymphocytes # (Manual) 4.86 H (1.0-4.8) k/uL Basophils # (Manual) 0.27 H (0-0.2) k/uL Sodium (137-145) mmol/L Potassium (3.5-5.1) mmol/L Carbon Dioxide (22-30) mmol/L BUN (9-20) mg/dL Creatinine (0.66-1.25) mg/dL Glucose (74-99) mg/dL POC Glucose (mg/dL) (75-99) mg/dL ALT (21-72) U/L Total Creatine Kinase 41 L (55-170) U/L Triglycerides 337 H (<150) mg/dL HDL Cholesterol 26 L (40-60) mg/dL 07/30/19 07/30/19 07/30/19 Range/Units 05:49 06:03 11:21 WBC (3.8-10.6) k/uL Neutrophils # (Manual) (1.3-7.7) k/uL Lymphocytes # (Manual) (1.0-4.8) k/uL Basophils # (Manual) (0-0.2) k/uL Sodium 136 L (137-145) mmol/L Potassium (3.5-5.1) mmol/L Carbon Dioxide 20 L (22-30) mmol/L BUN 35 H (9-20) mg/dL Creatinine 1.79 H (0.66-1.25) mg/dL Glucose 233 H (74-99) mg/dL POC Glucose (mg/dL) 225 H 192 H (75-99) mg/dL ALT 18 L (21-72) U/L Total Creatine Kinase (55-170) U/L Triglycerides (<150) mg/dL HDL Cholesterol (40-60) mg/dL Thrombosis Risk Factor Assmnt - DVT/VTE Prophylaxis DVT/VTE Prophylaxis: Pharmacologic Prophylaxis ordered - Choose All That Apply Any of the Below Risk Factors Present?: No Other Risk Factors: Yes Each Risk Factor Represents 3 Points: Age 75 years or older Other congenital or acquired thrombophilia - If yes, enter type in comment: No Each Risk Factor Represents 5 Points: Stroke (< 1 month) Thrombosis Risk Factor Assessment Total Risk Factor Score: 8 Thrombosis Risk Factor Assessment Level: High Risk Assessment and Plan Assessment: Acute CVA likely ischemic. Patient presents with Dysarthria and dysphagia and right-sided facial weakness which improved slightly. Hypertension uncontrolled. Acute on chronic kidney disease stage III. creatinine level 2.06 on admission Hypomagnesemia Hypertriglyceridemia with level 333 Diabetes type 2 [id number] Severe peripheral vascular disease with history of aortofemoral bypass History of abdominal aortic embolism repair Hyperlipidemia Coronary artery disease with history of stent placement History of coronary artery bypass graft Light tobacco smoker DVT prophylaxis. Heparin subcu. Plan: Patient will be continued on telemetry monitoring. Continue with dual antiplatelet therapy aspirin and statins. Patient is currently on Plavix at home but was changed to Brillinta 90 mg twice a day as per recommendation from neuro-intervention. Continue with home blood pressure medications. We'll add insulin sliding scale for better blood sugar control. Neurology has seen the patient and recommended MRI of the brain and 2-D echocardiogram. PTOT and speech therapy and swallow elevation is being done. Continue to follow closely and further recommendations based on the clinical course. Discussed with his and daughter at bedside in detail. Time with Patient: Greater than 30
[2019-07-30] MEDS: MAGNESIUM SULFATE-D5W PMX 1 GM in DEXTROSE/WATER 1 100ML.BAG IVPB SCH ×2 (17:39→18:52)
[2019-07-30 20:59] LABS: Glucose,Whole Blood 100 mg/dL (75-99)
[2019-07-31] MEDS: HEPARIN SODIUM,PORCINE 5,000 UNIT/ML 1 ML VIAL SQ SCH ×3 (00:10→17:00)
[2019-07-31] MEDS: amLODIPine 5 MG TAB PO SCH ×3 (00:10→19:57)
[2019-07-31] MEDS: TICAGRELOR 90 MG TAB PO SCH ×3 (00:10→19:57)
[2019-07-31 06:27] LABS: Calcium 9.2 mg/dL (8.4-10.2); Potassium 4.3 mmol/L (3.5-5.1)
[2019-07-31 06:32] LABS: Glucose,Whole Blood 138 mg/dL (75-99)
[2019-07-31] MEDS: glipiZIDE 5 MG TAB PO SCH ×2 (06:36→17:00)
[2019-07-31 06:37] LABS: HCT 40.1 % (39.0-53.0); HGB 13.3 gm/dL (13.0-17.5); MCH 30.6 pg (25.0-35.0); MCHC 33.2 g/dL (31.0-37.0); MCV 92.3 fL (80.0-100.0); Platelet Count 180 k/uL (150-450); RBC 4.35 m/uL (4.30-5.90); RDW 15.3 % (11.5-15.5); WBC 15.5 k/uL (3.8-10.6)
[2019-07-31 07:33] LABS: T4, Free (Free Thyroxine) 1.24 ng/dL (0.78-2.19)
[2019-07-31 07:59] LABS: Eosinophils # (M) 0.16 k/uL (0-0.7); Lymphocytes # (M) 7.44 k/uL (1.0-4.8); Monocytes # (M) 1.55 k/uL (0-1.0); Neutrophils % (M) 41 %; Nucleated Red Blood Cells 0 /100 WBC (0-0); Total Cells Counted 100
[2019-07-31 08:02] LABS: Reactive Lymphocytes Present
[2019-07-31] MEDS: ATENOLOL 25 MG TAB PO SCH (09:15)
[2019-07-31] MEDS: ATORVASTATIN 80 MG TAB PO SCH (09:15)
[2019-07-31] MEDS: ASPIRIN 81 MG PO SCH (09:16)
--- NOTE | 2019-07-31 11:05 | P.PN ---
Subjective Progress Note Date: 07/31/19 Patient was seen for follow-up. Patient's son was also present. Patient is doing better. He is able to walk better. His speech is still severely dysarthric. However able to formulate some words and consonants. Yesterday he was completely mute. Denies any new neurological symptoms. Patient's MRI of the brain revealed evidence of an acute left temporal lobe ischemic infarct. There is evidence of old cortical infarct involving right frontal lobe. There is diffuse atrophy. Extensive white matter changes probably due to chronic small vessel ischemia. Demyelinating disease not excluded. Swallow studies revealed silent aspiration with nectar thick consistency. Patient's hemoglobin A1c is pending. TSH is mildly elevated 4.820. Free T4 normal. Objective - Vital Signs Vital signs: Vital Signs Temp 98.2 F 07/31/19 08:00 Pulse 60 07/31/19 08:00 Resp 18 07/31/19 08:00 BP 173/79 07/31/19 08:00 Pulse Ox 96 07/31/19 08:00 Intake & Output 07/30/19 07/31/19 07/31/19 18:59 06:59 18:59 Intake Total 90 118 Output Total 1531 1900 500 Balance -1441 -1900 -382 Weight 76.5 kg Intake: Oral 90 118 Output: Urine 1530 1900 500 Uretheral ([place]) 1400 1400 500 Stool 1 Other: Voiding Method Indwelling Catheter Indwelling Catheter # Voids 1 1 - Exam On examination patient is still severely dysarthric. Able to formulate some letters and consonants. He is alert and awake fully oriented. Trying to communicate with writing. Patient has right facial asymmetry. Visual avitia are full. Extraocular muscles are intact. Strength is equal in the arms. - Labs CBC & Chem 7: 07/31/19 05:44 07/31/19 05:44 Labs: Abnormal Lab Results - Last 24 Hours (Table) 07/30/19 07/30/19 07/30/19 Range/Units 11:21 16:58 20:58 WBC (3.8-10.6) k/uL Lymphocytes # (Manual) (1.0-4.8) k/uL Monocytes # (Manual) (0-1.0) k/uL Chloride (98-107) mmol/L Carbon Dioxide (22-30) mmol/L BUN (9-20) mg/dL Creatinine (0.66-1.25) mg/dL Glucose (74-99) mg/dL POC Glucose (mg/dL) 192 H 185 H 100 H (75-99) mg/dL TSH (0.465-4.680) mIU/L 07/31/19 07/31/19 07/31/19 Range/Units 05:44 05:44 06:31 WBC 15.5 H (3.8-10.6) k/uL Lymphocytes # (Manual) 7.44 H (1.0-4.8) k/uL Monocytes # (Manual) 1.55 H (0-1.0) k/uL Chloride 109 H (98-107) mmol/L Carbon Dioxide 21 L (22-30) mmol/L BUN 34 H (9-20) mg/dL Creatinine 1.65 H (0.66-1.25) mg/dL Glucose 144 H (74-99) mg/dL POC Glucose (mg/dL) 138 H (75-99) mg/dL TSH 4.820 H (0.465-4.680) mIU/L Assessment and Plan Assessment: * Acute ischemic CVA, left temporal lobe, likely embolic in nature. Patient has evidence of old cortical infarct involving right frontal lobe. Cardioembolism needs to be ruled out. * Dysphagia and dysarthriadue to above. * Diabetes, not well controlled as per last A1c 7.5. * Hyperlipidemia * Hypertension * Tobacco user * Peripheral arterial disease. Plan: * Awaiting 2-D echo. I would even suggest transesophageal echocardiogram to rule out cardioembolic source, as his stroke is very highly embolic in nature and cardiac source needs to be ruled out thoroughly. If cardiac source identified, then patient would need long-term anticoagulation. * Continue telemetry monitoring. * Patient currently on Brillinta 90 mg twice a day as per recommendation from neuro-intervention. Patient has failed Plavix. Patient will be continued on aspirin 81 mg daily. * Awaiting hemoglobin A1c. Lipids are well controlled. * Tobacco cessation. * Patient will need prolonged speech therapy, PT and OT. * Speech therapist following patient for dysarthria and dysphagia. * Discussed with patient's son in detail.
[2019-07-31 12:03] LABS: Glucose,Whole Blood 151 mg/dL (75-99)
--- NOTE | 2019-07-31 13:23 | CDI ---
Documentation Clarification Form Date: 07/31/2019 12:46:42 PM From: April Beckett RN, CCDS Admit Date: 07/29/2019 8:24:00 PM Patient Name: Logan Chan Visit Number: [id number] Discharge Date: ATTENTION: The Clinical Documentation Specialists (CDI) and [facility] Coding Staff appreciate your assistance in clarifying documentation. Please respond to the clarification below the line at the bottom and electronically sign. The CDI & [facility] Coding staff will review the response and follow-up if needed. Please note: Queries are made part of the Legal Health Record. If you have any questions, please contact the author of this message via ITS. Dr. Ramiro Cleary The patient presented with the following: Difficulty in speech Hypertension uncontrolled is in your H/P and further clarification is needed. History/Risk Factors: Hypertension, Diabetes mellitus type 2, Coronary artery disease, Peripheral vascular disease Chronic renal failure stage 3 Clinical Indicators: 84-year-old male present to ER with complaints of suddenly developing difficulty speech, slurring speech and right-sided weakness. Lab findings: WBC 15.7, BUN 40, CR 2.06, NA+ 136 CT Brain: Encephalomalacia from remote vascular injuries MRI of brain showed there is evidence of acute left temporal lobe ischemic infarct. There I evidence of old cortical infarct right frontal lobe. Diffuse atrophy. Vital Signs on admission: 190/87 66 18, 186/77 62 18, 189/101 75 18, 186 78 82 18, 149/101 80 146 07/30/19 00:40 VS: 210/96, 207/96 (treated with Lopressor PO) Treatment: Telemetry monitoring Neurology consult Asa PO Lopressor PO (STA) Tenormin PO, Norvasc PO, Brilinta PO In your professional opinion, can you please clarify Hypertension uncontrolled? Hypertension Urgency Hypertension Emergency Other, please specify Unable to determine (Last Revision: January 2018) Uncontrolled hypertension. Expected in acute CVA. MTDD
--- NOTE | 2019-07-31 16:35 | P.CONS ---
History of Present Illness - Chief Complaint Gait disturbance - History of Present Illness I had the opportunity to see patient for inpatient rehab consultation with regard to gait disturbance. He was admitted to [facility] July 29 acute onset right-sided weakness and speech disturbance. Seen by neurology, Dr. Perera who notes head CT with encephalomalacia. Chest x-ray negative. Brain MRI with white matter change. PT reports minimal assistance for functional debility and gait 200 feet with roller walker, fatigues. OT reports supervision for upper/lower dressing, bathing, toileting, mobility. Speech therapy reports 80% accuracy trace completion but with maximal cueing, otherwise 0%. Speech poor. Previous functional history as elicited from and son: 84-year-old right- handed white male who is lives in one floor home with basement, with . does cooking, laundry, driving. Patient retired independent with driving, standing shower and intermittent need of standard cane. Also pack every 1-2 weeks and a very rare drink. Dr. Cortés is regular doctor. Family history mother with diabetes and stroke. Review of Systems Review of systems: ENT: Denies sneezes or discharge. Eyes: Denies discharge or photophobia. Cardiac: Denies chest pain or palpitation. Pulmonary: Denies cough or shortness of breath. Gastrointestinal: Denies nausea, emesis, constipation, diarrhea. Genitourinary: Denies discharge or frequency. Musculoskeletal: Denies muscle or bone aches. Neurologic: Right-sided weakness and speech disturbance. Endocrine: Denies shakes or sweats. Oncology: Denies cancers. Dermatologic: Denies rash, itching, pruritus. ALLERGY/immunology: Denies sneezes, rashes. Past Medical History Past Medical History: Cancer, Diabetes Mellitus, Hyperlipidemia, Hypertension, Myocardial Infarction (ID), Vascular Disorder Additional Past Medical History / Comment(s): previous wound rt foot/ [place]; bladder cancer 1998, PAD, Last Myocardial Infarction Date:: 1999 History of Any Multi-Drug Resistant Organisms: None Reported Past Surgical History: Adenoidectomy, Appendectomy, Bladder Surgery, Coronary Bypass/CABG, Tonsillectomy Additional Past Surgical History / Comment(s): AAA ,arterial femoral bypasses malini leg,CABG-3 vessel 1999 Past Anesthesia/Blood Transfusion Reactions: No Reported Reaction Additional Past Anesthesia/Blood Transfusion Reaction / Comm: no known hx of blood transfusions Past Psychological History: No Psychological Hx Reported Additional Psychological History / Comment(s): . No experience. 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 No international travel. No animal exposures. Sundt presents with him to clinic Smoking Status: Light tobacco smoker Past Alcohol Use History: None Reported Additional Past Alcohol Use History / Comment(s): quit smoking approx 2016,smoked approx 60 yrs 1ppd, smokes occasionally Past Drug Use History: None Reported - Past Family History Brother(s) Family Medical History: Cancer Additional Family Medical History / Comment(s): esophageal Ca Father Additional Family Medical History / Comment(s): AAA Mother Family Medical History: Dementia, Diabetes Mellitus Medications and Allergies Home Medications Medication Instructions Recorded Confirmed Type Atenolol [Tenormin] 25 mg PO DAILY 11/03/16 07/29/19 History Lovastatin [Mevacor] 80 mg PO HS 11/03/16 07/29/19 History Cholecalciferol [Vitamin D3 (25 5,000 units PO DAILY 09/19/17 07/29/19 History Mcg = 1000 Iu)] Clopidogrel [Plavix] 75 mg PO DAILY #30 tab 02/01/18 07/29/19 Rx Aspirin EC [Ecotrin] 325 mg PO DAILY 03/31/18 07/29/19 History glipiZIDE [Glucotrol] 10 mg PO BID-W/MEALS 03/31/18 07/29/19 History amLODIPine [Norvasc] 5 mg PO BID 07/29/19 07/29/19 History Allergies Allergy/AdvReac Type Severity Reaction Status Date / Time tramadol [From Ultram] AdvReac Hallucinati Verified 07/29/19 18:51 ons Physical Exam Vitals: Vital Signs Temp Pulse Resp BP Pulse Ox 07/31/19 15:35 96 07/31/19 08:00 98.2 F 60 18 173/79 96 07/31/19 03:31 61 18 07/31/19 03:30 98.8 F 61 18 176/76 92 L 07/31/19 00:00 98.8 F 55 L 20 150/69 95 07/30/19 21:00 98.5 F 61 18 149/67 95 07/30/19 17:00 65 20 175/77 100 Intake and Output 07/31/19 07/31/19 07/31/19 06:59 14:59 22:59 Intake Total 358 Output Total 1000 500 725 Balance -7851 -679 -945 Intake: Oral 358 Output: Urine 1000 500 725 Uretheral (Arrington) 500 500 Other: Voiding Method Indwelling Catheter Indwelling Catheter Indwelling Catheter # Voids 1 Weight 76.5 kg Skin: Atrophic, intact. General: Medium build and comfortable appearance. Head: Normocephalic, atraumatic. Eyes: Symmetric. Pupils equal round. Ears: Symmetric. Hearing within normal limits. Mouth: Clear. Neck: Supple. Carotid without bruit. Cardiac: Regular rate and rhythm. Lungs: Clear anteriorly and posteriorly. Abdomen: Soft active nontender. Extremities: Normal tone. Neurological: Mental status: Alert, cooperative, pleasant. Cranial nerves: Symmetric facial tone and trapezius. Motor: Aphasia. Normal strength and isolation left arm and leg. Right arm mildly apraxic and right leg less so. Sensation: Intact throughout. DTRs: Symmetric and equal throughout. Mobility: Patient sleepy and did not attempt to sit or stand on my own. Results CBC & Chem 7: 07/31/19 05:44 07/31/19 05:44 Labs: Abnormal Lab Results - Last 24 Hours (Table) 07/30/19 07/30/19 07/31/19 Range/Units 16:58 20:58 05:44 WBC (3.8-10.6) k/uL Lymphocytes # (Manual) (1.0-4.8) k/uL Monocytes # (Manual) (0-1.0) k/uL Chloride (98-107) mmol/L Carbon Dioxide (22-30) mmol/L BUN (9-20) mg/dL Creatinine (0.66-1.25) mg/dL Glucose (74-99) mg/dL POC Glucose (mg/dL) 185 H 100 H (75-99) mg/dL Hemoglobin A1c 7.0 H (4.0-6.0) % TSH (0.465-4.680) mIU/L 07/31/19 07/31/19 07/31/19 Range/Units 05:44 05:44 06:31 WBC 15.5 H (3.8-10.6) k/uL Lymphocytes # (Manual) 7.44 H (1.0-4.8) k/uL Monocytes # (Manual) 1.55 H (0-1.0) k/uL Chloride 109 H (98-107) mmol/L Carbon Dioxide 21 L (22-30) mmol/L BUN 34 H (9-20) mg/dL Creatinine 1.65 H (0.66-1.25) mg/dL Glucose 144 H (74-99) mg/dL POC Glucose (mg/dL) 138 H (75-99) mg/dL Hemoglobin A1c (4.0-6.0) % TSH 4.820 H (0.465-4.680) mIU/L 07/31/19 Range/Units 11:49 WBC (3.8-10.6) k/uL Lymphocytes # (Manual) (1.0-4.8) k/uL Monocytes # (Manual) (0-1.0) k/uL Chloride (98-107) mmol/L Carbon Dioxide (22-30) mmol/L BUN (9-20) mg/dL Creatinine (0.66-1.25) mg/dL Glucose (74-99) mg/dL POC Glucose (mg/dL) 151 H (75-99) mg/dL Hemoglobin A1c (4.0-6.0) % TSH (0.465-4.680) mIU/L Assessment and Plan (1) Cerebrovascular accident (CVA) Current Visit: Yes Status: Acute Code(s): I63.9 - CEREBRAL INFARCTION, UNSPECIFIED SNOMED Code(s): 099398984 (2) Cellulitis of right foot Current Visit: No Status: Acute Code(s): L03.115 - CELLULITIS OF RIGHT LOWER LIMB SNOMED Code(s): 079927188 Plan: Impression: 1. Gait disturbance. 2. Left-sided stroke result in right hemiparesthesias and aphasia. 2. Cellulitis right foot. 4. Diabetic diabetes. 5. Hypertension. 6. History of cancer. 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 PT document safety concerns. Speech therapy however documents patient at supervision level. We'll have them review this for possible inpatient rehab. Possible rehab discussed with and son as well.
[2019-07-31] MEDS: SODIUM CHLORIDE 0.9% 1,000 ML IV SCH (17:02)
[2019-07-31 17:06] LABS: Glucose,Whole Blood 145 mg/dL (75-99)
--- NOTE | 2019-07-31 18:54 | ECHOF ---
Referral Reason:Thrombus MEASUREMENTS -------- HEIGHT: 177.8 cm WEIGHT: 69.4 kg BP: 198/79 RVIDd: 3.4 cm (< 3.3) IVSd: 1.4 cm (0.6 - 1.1) LVIDd: 5.1 cm (3.9 - 5.3) LVPWd: 1.4 cm (0.6 - 1.1) IVSs: 1.7 cm LVIDs: 3.9 cm LVPWs: 1.6 cm LAESV Index (A-L): 44.90 ml/m Ao Diam: 4.2 cm (2.0 - 3.7) AV Cusp: 2.0 cm (1.5 - 2.6) LA Diam: 3.9 cm (2.7 - 3.8) MV E Minor: 0.70 m/s MV DecT: 111 ms MV A Minor: 1.07 m/s MV E/A Ratio: 0.66 RAP: 5.00 mmHg RVSP: 45.24 mmHg FINDINGS -------- Sinus rhythm. This was a technically adequate study. The left ventricular size is normal. There is moderate concentric left ventricular hypertrophy. T here is mild global hypokinesis of LV . Overall left ventricular systolic function is moderately im paired with, an EF between 35 - 40 %. Mitral Doppler inflow pattern suggests diastolic filling abno rmality 12.46. Inferiorlateral Hypokinesis The right ventricle is normal in size. LA is severely dilated >40 ml/m2 The right atrium is mildly enlarged. Interatrial and interventricular septum intact. The aortic valve is trileaflet and appears structurally normal. There is no evidence of aortic regu rgitation. There is no evidence of aortic stenosis. Mild mitral regurgitation is present. [id number] tricuspid regurgitation present. There is mild to moderate pulmonary hypertension. The right ventricular systolic pressure, as measured by Doppler, is 45.24mmHg. There is no pulmonic regurgitation present. The aortic root is mildy dilated. IVC Not well visulized. There is no pericardial effusion. CONCLUSIONS -------- 1. Sinus rhythm. 2. This was a technically adequate study. 3. The left ventricular size is normal. 4. There is moderate concentric left ventricular hypertrophy. 5. There is mild global hypokinesis of LV . 6. Mitral Doppler inflow pattern suggest diastolic filling abnormality 12.46. 7. Inferiorlateral Hypokinesis 8. The right ventricle is normal in size. 9. LA is severely dilated >40 ml/m2 10. The right atrium is mildly enlarged. 11. Interatrial and interventricular septum intact. 12. The aortic valve is trileaflet and appears structurally normal. 13. There is no evidence of aortic regurgitation. 14. There is no evidence of aortic stenosis. 15. Mild mitral regurgitation is present. 16. [id number] tricuspid regurgitation present. 17. There is mild to moderate pulmonary hypertension. 18. The right ventricular systolic pressure, as measured by Doppler, is 45.24mmHg. 19. There is no pulmonic regurgitation present. 20. The aortic root is mildy dilated. 21. IVC Not well visulized. 22. There is no pericardial effusion. SIDE LASTER: Jennie Latham RDCS
[2019-07-31 21:04] LABS: Glucose,Whole Blood 202 mg/dL (75-99)
[2019-08-01] MEDS ORDERED: HEPARIN SODIUM,PORCINE 5,000 UNIT/ML 1 ML VIAL ONE
[2019-08-01 07:23] LABS: Glucose,Whole Blood 165 mg/dL (75-99)
[2019-08-01] MEDS: glipiZIDE 5 MG TAB PO SCH ×2 (08:09→17:47)
[2019-08-01] MEDS: HEPARIN SODIUM,PORCINE 5,000 UNIT/ML 1 ML VIAL SQ SCH ×3 (08:09→17:47)
[2019-08-01] MEDS: ATORVASTATIN 80 MG TAB PO SCH (08:09)
[2019-08-01] MEDS: SODIUM CHLORIDE 0.9% 1,000 ML IV SCH ×2 (08:10→21:35)
[2019-08-01] MEDS: amLODIPine 5 MG TAB PO SCH ×2 (08:10→21:21)
[2019-08-01] MEDS: ATENOLOL 25 MG TAB PO SCH (08:10)
[2019-08-01] MEDS: ASPIRIN 81 MG PO SCH (08:10)
[2019-08-01 08:30] LABS: HCT 40.4 % (39.0-53.0); HGB 12.6 gm/dL (13.0-17.5); MCH 29.2 pg (25.0-35.0); MCHC 31.2 g/dL (31.0-37.0); MCV 93.5 fL (80.0-100.0); Mean Platelet Volume 7.7; Platelet Count 177 k/uL (150-450); RBC 4.32 m/uL (4.30-5.90); RDW 15.3 % (11.5-15.5); WBC 11.7 k/uL (3.8-10.6)
[2019-08-01 09:17] LABS: Calcium 8.8 mg/dL (8.4-10.2); Potassium 4.1 mmol/L (3.5-5.1)
[2019-08-01 09:18] LABS: Lymphocytes # (M) 4.45 k/uL (1.0-4.8); Monocytes # (M) 1.64 k/uL (0-1.0); Neutrophils % (M) 48 %; Nucleated Red Blood Cells 0 /100 WBC (0-0); Total Cells Counted 100
[2019-08-01 11:49] LABS: Glucose,Whole Blood 344 mg/dL (75-99)
[2019-08-01] MEDS: TICAGRELOR 90 MG TAB PO SCH ×2 (13:00→21:21)
--- NOTE | 2019-08-01 15:52 | P.PN ---
Subjective Progress Note Date: 08/01/19 Patient was seen for follow-up. Patient's was also present. Patient is doing better. He is able to walk better. Speech has much improved although still quite dysarthric. However able to formulate some words and short sentences. Better than yesterday. Denies any new neurological symptoms. Patient's MRI of the brain revealed evidence of an acute left temporal lobe ischemic infarct. There is evidence of old cortical infarct involving right frontal lobe. There is diffuse atrophy. Extensive white matter changes probably due to chronic small vessel ischemia. Demyelinating disease not excl uded. Swallow studies revealed silent aspiration with nectar thick consistency. Patient's hemoglobin A1c is 7.0. TSH is mildly elevated 4.820. Free T4 normal. 2-D echo showed mild global hypokinesis of left ventricle. Inferolateral hypokinesis. Left atrial is severely dilated. Right atrium is mildly dilated. Interatrial and interventricular septum intact. Aortic root is mildly dilated. Objective - Vital Signs Vital signs: Vital Signs Temp 97.7 F 08/01/19 14:26 Pulse 51 L 08/01/19 14:26 Resp 16 08/01/19 14:26 BP 148/66 08/01/19 14:26 Pulse Ox 98 08/01/19 14:26 Intake & Output 07/31/19 08/01/19 08/01/19 18:59 06:59 18:59 Intake Total 476 354 Output Total 1225 700 300 Balance -749 -700 54 Intake: Oral 476 354 Output: Urine 1225 700 300 Uretheral (Arrington) 500 Other: Voiding Method Indwelling Catheter Indwelling Catheter - Exam On examination patient is still dysarthric, but much better than yesterday. Pat ient able to speak short words, which are very intelligible, and easily understandable. Patient able to speak out loud ABCD.... Right facial asymmetry has also improved. Visual avitia are full. Extraocular muscles are intact. Strength is equal in the arms. No pronator drift. Strength is normal in the legs. Sensations equal. - Labs CBC & Chem 7: 08/01/19 07:15 08/01/19 07:15 Labs: Abnormal Lab Results - Last 24 Hours (Table) 07/31/19 07/31/19 08/01/19 Range/Units 16:52 21:01 07:15 WBC 11.7 H (3.8-10.6) k/uL Hgb 12.6 L (13.0-17.5) gm/dL Monocytes # (Manual) 1.64 H (0-1.0) k/uL Chloride (98-107) mmol/L BUN (9-20) mg/dL Creatinine (0.66-1.25) mg/dL Glucose (74-99) mg/dL POC Glucose (mg/dL) 145 H 202 H (75-99) mg/dL 08/01/19 08/01/19 08/01/19 Range/Units 07:15 07:20 11:45 WBC (3.8-10.6) k/uL Hgb (13.0-17.5) gm/dL Monocytes # (Manual) (0-1.0) k/uL Chloride 110 H (98-107) mmol/L BUN 29 H (9-20) mg/dL Creatinine 1.45 H (0.66-1.25) mg/dL Glucose 157 H (74-99) mg/dL POC Glucose (mg/dL) 165 H 344 H (75-99) mg/dL Assessment and Plan Assessment: * Acute ischemic CVA, left temporal lobe, likely embolic in nature. Patient has evidence of old cortical infarct involving right frontal lobe. Cardioembolism needs to be ruled out. * Dysphagia and dysarthriadue to above. Improved as compared to yesterday. * Diabetes, not well controlled as per last A1c 7.0. * Hyperlipidemia * Hypertension * Tobacco user * Peripheral arterial disease. Plan: * 2-D echo was quite abnormal. Recommend transesophageal echocardiogram to rule out cardioembolic source, as his stroke is very highly embolic in nature and cardiac source needs to be ruled out thoroughly. If cardiac source identified, then patient would need long-term anticoagulation. * Continue telemetry monitoring. Cardiology has been consulted. * Patient currently on Brillinta 90 mg twice a day as per recommendation from neuro-intervention. Patient has failed Plavix. Patient will be continued on aspirin 81 mg daily. * Optimize control of diabetes. Lipids are well controlled. * Tobacco cessation. * Patient will need prolonged speech therapy. His speech has improved as compared to yesterday. * Discussed with patient's in detail.
[2019-08-01 17:11] LABS: Glucose,Whole Blood 130 mg/dL (75-99)
[2019-08-01 20:58] LABS: Glucose,Whole Blood 163 mg/dL (75-99)
--- NOTE | 2019-08-01 22:28 | P.PN ---
Progress Note - Text Progress Note Date: 08/01/19 Interval history: Patient admitted with right-sided weakness, and difficulty speech. Since admi ssion some improvement in speech and some right-sided weakness. Patient is found to have some aspiration with thin liquids. Patient's been put on a chopped diet. MRI of the brain didn't show acute left temporal lobe infarct. Also evidence of old cortical infarct in the right frontal lobe. Diffuse atrophy. Fluoroscopy barium swallow with redo short-Salit aspiration with nectar thick consistency. Today-: Patient's and daughter the bedside. Some improvement in speech. Some improvement in the right-sided weakness. Review of systems: Was done for constitutional, cardiovascular, GI, pulmonary. Neurological, relevant finding as above Active Medications Amlodipine Besylate (Norvasc) 5 mg PO BID [facility] Last Admin: 08/01/19 21:21 Dose: 5 mg Documented by: Aspirin (Aspirin) 325 mg PO DAILY [facility] Last Admin: 08/01/19 08:10 Dose: 325 mg Documented by: Atenolol (Tenormin) 25 mg PO DAILY [facility] Last Admin: 08/01/19 08:10 Dose: 25 mg Documented by: Atorvastatin Calcium (Lipitor) 80 mg PO DAILY [facility] Last Admin: 08/01/19 08:09 Dose: 80 mg Documented by: Glipizide (Glucotrol) 10 mg PO BID-W/MEALS [facility] Last Admin: 08/01/19 17:47 Dose: 10 mg Documented by: Heparin Sodium (Porcine) (Heparin) 5,000 unit SQ Q8HR [facility] Last Admin: 08/01/19 17:47 Dose: 5,000 unit Documented by: Sodium Chloride (Saline 0.9%) 1,000 mls @ 75 mls/hr IV .[id number] [facility] Last Admin: 08/01/19 21:35 Dose: 75 mls/hr Documented by: Ticagrelor (Brilinta) 90 mg PO BID [facility] Last Admin: 08/01/19 21:21 Dose: 90 mg Documented by: Physical examination: VITAL SIGNS: 98.2, 60, 18, 173/79, 96% room air GENERAL: Average built, sitting up, comfortable. EYES: Pupils equal. Conjunctiva normal. HEENT: External appearance of nose and ears normal, oral cavity grossly normal. NECK: JVD not raised; masses not palpable. HEART: First and second heart sounds are normal; no edema. LUNGS: Respiratory rate normal; decreased breath sounds. ABDOMEN: Soft, nontender, liver spleen not palpable, no masses palpable. PSYCH: Able to answer some questionsl. NEUROLOGICAL: Cranial nerves grossly intact; no facial asymmetry, speech is a bit slow. Power of the right side is 4/5 Investigations: MRI as above 2-D echo-moderate concentric left ventricular hypertrophy, global hypokinesis of L3, EF 35-40%, Assessment: -Acute left parietal lobe stroke, affecting speech and right-sided also patient presents improvement. Need to rule out embolic. -Acute dysarthria from stroke -Acute dysphagia to thin liquids from stroke -Diabetes mellitus type 2 -Essential hypertension -Hyperlipidemia -Coronary artery disease with history of coronary bypass in 1999 -Peripheral artery disease with history of femoral bypass Plan: Care was discussed in length with patient's daughter and the . Discussed importance of getting a FERMÍN done. Questions were answered. Also spoke to byron from cardiology service. Patient is being scheduled for FERMÍN. Continue current medications. Total time spent today was about 40 minutes with over 20- 25 minutes of discussion. We will make nothing by mouth after midnight.
[2019-08-02] MEDS: HEPARIN SODIUM,PORCINE 5,000 UNIT/ML 1 ML VIAL SQ SCH ×2 (00:37→10:35)
[2019-08-02 07:12] LABS: Glucose,Whole Blood 156 mg/dL (75-99)
[2019-08-02] MEDS ORDERED: fentaNYL (PF) 50 MCG/ML 2 ML AMP ONE (07:32)
[2019-08-02 08:03] VITALS: RESP 16
[2019-08-02] MEDS ORDERED: BENZOCAINE SPRAY 1 CAN MUCOUS MEM ONE (08:05)
[2019-08-02] MEDS ORDERED: fentaNYL (PF) 50 MCG/ML 2 ML AMP IV ONE (08:13)
[2019-08-02] MEDS ORDERED: IV FLUID CONTINUATION 1,000 ML IV ONE (08:13)
[2019-08-02] MEDS ORDERED: MIDAZOLAM 2 MG/2 ML VIAL IV ONE (08:13)
--- NOTE | 2019-08-02 08:40 | P.TEE ---
Indications for Procedure(s): Rule out Cardec source of emboli Date of Procedure: 08/02/19 Description of Procedure(s): INDICATION: This is a 84-year-old gentleman was admitted to the hospital with CVA. A FERMÍN examination is requested to rule out any Cardec source of emboli CONSENT:. Informed consent was obtained verbally PROCEDURE: This is a 84-year-old gentleman was brought to the lab in a fasting state. He was prepped and draped in the usual fashion. The throat was sprayed with Cetacaine. Patient was given IV sedation with fentanyl 12.5 g and Versed 1 mg. A lubricated Omni probe was introduced into the oropharynx and was advanced into the esophagus. Multiple views were obtained both from the esophagus and stomach. Color, pulsed also and continuous-wave Doppler was performed along with saline contrast bubble injection. FINDINGS: The aortic valve is tricuspid and function normally. The mitral valve appeared to be normal with mild regurgitation. Tricuspid valve appeared to be normal with mild regurgitation. The left atrial appendage appeared to be free of any clot. There is smoke in the enlarged left atrium, but no clots. The interatrial septum showed evidence of shunt from the [id number] suggestive of presence of PFO. Contrast saline bubble injection showed crossing of a few bubbles to the left side. There is mild plaque in the aorta. Lead function appear to be mildly impaired IMPRESSION: #1 presence of PFO #2. Smoke in the left atrium without any detectable clot. #3. No clot in the left atrial appendage. #4. Normal valvular function, except mild mitral regurgitation. #5. Mild plaque in the aorta #6. LV function appears to be mildly impaired PLAN: Continue current medical therapy. May consider anticoagulation therapy. We'll also get venous duplex study of both legs. May also need long-term monitoring to rule out atrial fibrillation. Closure of PFO, he patient has any recurrence of CVA in spite of medical therapy
[2019-08-02] MEDS ORDERED: SODIUM CHLORIDE 0.9% 1,000 ML IV SCH (08:45)
[2019-08-02] MEDS ORDERED: CHLORTHALIDONE 25 MG TAB PO SCH (09:00)
[2019-08-02] MEDS ORDERED: ASPIRIN 81 MG PO SCH (09:00)
[2019-08-02] MEDS: ATENOLOL 25 MG TAB PO SCH (10:35)
[2019-08-02] MEDS: amLODIPine 5 MG TAB PO SCH (10:35)
[2019-08-02] MEDS: ATORVASTATIN 80 MG TAB PO SCH (10:35)
[2019-08-02] MEDS: glipiZIDE 5 MG TAB PO SCH (10:35)
[2019-08-02] MEDS: TICAGRELOR 90 MG TAB PO SCH (10:36)
--- NOTE | 2019-08-02 10:52 | US ---
EXAMINATION TYPE: US venous doppler duplex LE DATE OF EXAM: 08/02/2019 10:20 AM COMPARISON: Left leg only CLINICAL HISTORY: R/O DVT. Right leg very limited, see below SIDE PERFORMED: Bilateral TECHNIQUE: The lower extremity deep venous system is examined utilizing real time linear array sonog marquis with graded compression, doppler sonography and color-flow sonography. VESSELS IMAGED: External Iliac Vein (EIV) Common Femoral Vein Deep Femoral Vein Greater Saphenous Vein * Femoral Vein Popliteal Vein Small Saphenous Vein * Proximal Calf Veins (* superficial vessels) Right Leg: Negative for DVT from mid femoral vein to proximal calf veins/ Right EIV, CFV, GSV, Deep fem vein, and proximal fem vein not visualized due to large cystic mass within right groin= 7.3 x 3.5 x 7.2 cm, and due to urine cath bandage within right medial thigh Left Leg: Negative for DVT IMPRESSION: No sonographic evidence of deep venous thrombosis in the visualized right lower extremit ies. There is limitation in evaluation of the right external iliac vein, common femoral vein, greater saphenous vein and deep femoral vein as well as proximal femoral vein as they're not visualized due to a large cystic mass in the right groin measuring 7.3 x 3.5 x 7.2 cm of undetermined etiology. CT w ith and without contrast on the pelvis including upper right thigh would be recommended for further e valuation.
[2019-08-02 11:50] LABS: Glucose,Whole Blood 240 mg/dL (75-99)
[2019-08-02 13:02] VITALS: BP 168/70; PULSE 57; TEMP 98.1
[2019-08-02] MEDS ORDERED: RIVAROXABAN 20 MG TAB PO SCH (17:30)
--- NOTE | 2019-08-02 23:28 | P.DS ---
Providers Date of admission: 07/29/19 20:24 Expected date of discharge: 08/02/19 Attending physician: Cristopher Quarles Consults: 07/29/19 20:24 Consult Physician Urgent Consulting Provider: Liz Santana Consult Reason/Comments: cva Do you want consulting provider notified?: Yes, Notify in am 07/31/19 14:45 Consult Physician Routine Consulting Provider: Lio Morton Consult Reason/Comments: evaluate for inpatient rehab Do you want consulting provider notified?: Yes 08/01/19 11:31 Consult Physician Routine Consulting Provider: Susy Esquivel Consult Reason/Comments: FERMÍN Do you want consulting provider notified?: Yes Primary care physician: [facility] Course: Hospital course: Patient admitted with right-sided weakness, and difficulty speech. Since admiss ion some improvement in speech and some right-sided weakness. Patient is found to have some aspiration with thin liquids. Patient's been put on a chopped diet. MRI of the brain didn't show acute left temporal lobe infarct. Also evidence of old cortical infarct in the right frontal lobe. Diffuse atrophy. Fluoroscopy barium swallow with showed aspiration with nectar thick consistency. Patient right-sided weakness has improved. Walking much better. Speech is slow and slurred. Patient did have a FERMÍN. Did show PFO. Will need a patch down the road. Today-spoke with the patient and at length. Explained the plan. Eliquis is be started. Discussed with the neurologist. Patient will follow-up with cardiology Dr. Ahn. For the PFO. Discussion and discharge planning more than 35 minutes Consultation: Dr. Perera from neurology Dr. Aparicio from cardiology who also did the FERMÍN Physical examination: VITAL SIGNS: 98.2, 60, 18, 173/79, 96% room air GENERAL: Average built, sitting up, comfortable. EYES: Pupils equal. Conjunctiva normal. HEENT: External appearance of nose and ears normal, oral cavity grossly normal. NECK: JVD not raised; masses not palpable. HEART: First and second heart sounds are normal; no edema. LUNGS: Respiratory rate normal; decreased breath sounds. ABDOMEN: Soft, nontender, liver spleen not palpable, no masses palpable. PSYCH: Able to answer some questionsl. NEUROLOGICAL: Cranial nerves grossly intact; no facial asymmetry, speech is a bit slow. Power of the right side is 4/5 Investigations: MRI as above 2-D echo-moderate concentric left ventricular hypertrophy, global hypokinesis of L3, EF 35-40%, FERMÍN-PFO with [id number] shunt. Smoke in the left atrophy with no evidence of any clot undetectable Discharge diagnosis: -Acute left parietal lobe stroke, affecting speech and right-sided also patient presents improvement. Could be embolic. -PFO with [id number] shunt. -Acute dysarthria from stroke -Acute dysphagia to thin liquids from stroke -Diabetes mellitus type 2 -Essential hypertension -Hyperlipidemia -Coronary artery disease with history of coronary bypass in 1999 -Peripheral artery disease with history of femoral bypass Disposition: Home with speech and PTOT Patient Condition at Discharge: Stable Plan - Discharge Summary Discharge Rx Participant: No New Discharge Prescriptions: New Aspirin 81 mg PO DAILY chew Chlorthalidone [Hygroton] 25 mg PO DAILY #30 tab Atorvastatin [Lipitor] 80 mg PO DAILY #30 tab Metoprolol Tartrate [Lopressor] 50 mg PO BID #60 tab Rivaroxaban [Xarelto] 20 mg PO W/SUPPER #30 tab Continue Cholecalciferol [Vitamin D3 (25 Mcg = 1000 Iu)] 5,000 units PO DAILY glipiZIDE [Glucotrol] 10 mg PO BID-W/MEALS amLODIPine [Norvasc] 5 mg PO BID Discontinued Lovastatin [Mevacor] 80 mg PO HS Atenolol [Tenormin] 25 mg PO DAILY Clopidogrel [Plavix] 75 mg PO DAILY #30 tab Aspirin EC [Ecotrin] 325 mg PO DAILY Discharge Medication List Cholecalciferol [Vitamin D3 (25 Mcg = 1000 Iu)] 5,000 units PO DAILY 09/19/17 [History] glipiZIDE [Glucotrol] 10 mg PO BID-W/MEALS 03/31/18 [History] amLODIPine [Norvasc] 5 mg PO BID 07/29/19 [History] Aspirin 81 mg PO DAILY chew 08/02/19 [Rx] Atorvastatin [Lipitor] 80 mg PO DAILY #30 tab 08/02/19 [Rx] Chlorthalidone [Hygroton] 25 mg PO DAILY #30 tab 08/02/19 [Rx] Metoprolol Tartrate [Lopressor] 50 mg PO BID #60 tab 08/02/19 [Rx] Rivaroxaban [Xarelto] 20 mg PO W/SUPPER #30 tab 08/02/19 [Rx] Follow up Appointment(s)/Referral(s): Philippe Cortés DO [Primary Care Provider] - 1 Week Darek Ahn MD [STAFF PHYSICIAN] - 1 Week [facility], [NON-STAFF] - 1 Week Willis Liu MD [STAFF PHYSICIAN] - 1 Week Activity/Diet/Wound Care/Special Instructions: Fax new prescriptions to the [facility] as well - [phone] Speech Therapy and PTOT recommendations to be followed. Discharge Disposition: HOME SELF-CARE
== END 2019-08-02 14:43 | disposition home health service (06) | DRG 65 ==
LOC: EC 18:33 → 3SCARD 20:24 → 4MS4W 07-31 18:26
PROVIDERS: ADMIT Hospitalist; ATTEND Hospitalist
DX: I63.40 Cerebral infarction due to embolism of unspecified cerebral artery (principal); Q21.1 Atrial septal defect; G81.91 Hemiplegia, unspecified affecting right dominant side; L03.115 Cellulitis of right lower limb; R13.10 Dysphagia, unspecified; R47.1 Dysarthria and anarthria; N18.3 Chronic kidney disease, stage 3 (moderate); E11.22 Type 2 diabetes mellitus with diabetic chronic kidney disease; E11.51 Type 2 diabetes mellitus with diabetic peripheral angiopathy without gangrene; I12.9 Hypertensive chronic kidney disease with stage 1 through stage 4 chronic kidney disease, or unspecified chronic kidney disease; E78.5 Hyperlipidemia, unspecified; Z95.1 Presence of aortocoronary bypass graft; I25.10 Atherosclerotic heart disease of native coronary artery without angina pectoris; E78.00 Pure hypercholesterolemia, unspecified; I25.2 Old myocardial infarction; R29.810 Facial weakness; R47.01 Aphasia; E83.42 Hypomagnesemia; F17.200 Nicotine dependence, unspecified, uncomplicated; G93.89 Other specified disorders of brain; Z79.02 Long term (current) use of antithrombotics/antiplatelets; Z79.82 Long term (current) use of aspirin; Z79.84 Long term (current) use of oral hypoglycemic drugs; Z79.899 Other long term (current) drug therapy; Z80.0 Family history of malignant neoplasm of digestive organs; Z82.3 Family history of stroke; Z83.3 Family history of diabetes mellitus; Z85.51 Personal history of malignant neoplasm of bladder; Z86.73 Personal history of transient ischemic attack (TIA), and cerebral infarction without residual deficits; Z86.79 Personal history of other diseases of the circulatory system; Z95.5 Presence of coronary angioplasty implant and graft; R29.710 NIHSS score 10; Z53.29 Procedure and treatment not carried out because of patient's decision for other reasons
CPT/HCPCS: 36415; 70450; 70496; 70498; 70551; 71046; 74230; 80048; 80053; 80061; 82550; 82553; 83036; 83735; 84439; 84443; 84484; 85025; 85610; 85730; 93005; 93306; 93312; 93320; 93325; 93970; 94760; 96360; 96361; 99285

== ENCOUNTER → 2020-04-11 | Outpatient (CLI) | payer MEDICARE | END | disposition home or self-care (01) | LOC: LABWHC1 09:58 | PROVIDERS: ATTEND Family Medicine | DX: Z53.9 Procedure and treatment not carried out, unspecified reason (principal) ==

== ENCOUNTER 2020-05-14 13:33 | Emergency (ER) | payer MEDICARE ==
--- NOTE | 2020-05-14 14:03 | ED ---
Male Urogenital HPI - General Chief complaint: Urogenital Stated complaint: Unable to urinate after Left ear surgery today Time Seen by Provider: 05/14/20 13:51 Source: patient, RN notes reviewed Mode of arrival: wheelchair Limitations: no limitations - History of Present Illness Initial comments: This 85-year-old male who states she's had left ear surgery this morning and has not been able urinate since then. Stating he needs a catheter. He denies any fevers chills or other symptoms at this time. - Related Data Home Medications Medication Instructions Recorded Confirmed Cholecalciferol [Vitamin D3 (25 5,000 units PO DAILY 09/19/17 07/29/19 Mcg = 1000 Iu)] glipiZIDE [Glucotrol] 10 mg PO BID-W/MEALS 03/31/18 07/29/19 amLODIPine [Norvasc] 5 mg PO BID 07/29/19 07/29/19 Previous Rx's Medication Instructions Recorded Aspirin 81 mg PO DAILY chew 08/02/19 Atorvastatin [Lipitor] 80 mg PO DAILY #30 tab 08/02/19 Chlorthalidone [Hygroton] 25 mg PO DAILY #30 tab 08/02/19 Metoprolol Tartrate [Lopressor] 50 mg PO BID #60 tab 08/02/19 Rivaroxaban [Xarelto] 20 mg PO W/SUPPER #30 tab 08/02/19 Allergies Allergy/AdvReac Type Severity Reaction Status Date / Time tramadol [From Ultram] AdvReac Hallucinati Verified 05/14/20 13:39 ons Review of Systems ROS Statement: Those systems with pertinent positive or pertinent negative responses have been documented in the HPI. ROS Other: All systems not noted in ROS Statement are negative. Past Medical History Past Medical History: Cancer, Diabetes Mellitus, Hyperlipidemia, Hypertension, Myocardial Infarction ([place]), Vascular Disorder Additional Past Medical History / Comment(s): previous wound rt foot/ [place]; bladder cancer 1998, PAD, ear cancer Last Myocardial Infarction Date:: 1999 History of Any Multi-Drug Resistant Organisms: None Reported Past Surgical History: Adenoidectomy, Appendectomy, Bladder Surgery, Coronary Bypass/CABG, Tonsillectomy Additional Past Surgical History / Comment(s): AAA ,arterial femoral bypasses malini leg,CABG-3 vessel 1999 Past Anesthesia/Blood Transfusion Reactions: No Reported Reaction Additional Past Anesthesia/Blood Transfusion Reaction / Comment(s): no known hx of blood transfusions Past Psychological History: No Psychological Hx Reported Smoking Status: Never smoker Past Alcohol Use History: None Reported Past Drug Use History: None Reported - Past Family History Brother(s) Family Medical History: Cancer Additional Family Medical History / Comment(s): esophageal Ca Father Additional Family Medical History / Comment(s): AAA Mother Family Medical History: Dementia, Diabetes Mellitus General Exam - General Exam Comments Initial Comments: This is a well-developed sec appearing male was awake alert oriented 3 Limitations: no limitations General appearance: alert, anxious, in distress Head exam: Present: atraumatic, normocephalic, normal inspection Eye exam: Present: PERRL, EOMI ENT exam: Present: other (Dressing over the left ear no evidence of bleeding through the dressing) Neck exam: Present: normal inspection GI/Abdominal exam: Present: soft, other (Evidence of a distended urinary bladder. Mild discomfort to palpation.) exam: Present: normal inspection Back exam: Present: full ROM Neurological exam: Present: alert, oriented X3, CN II-XII intact Psychiatric exam: Present: normal affect, normal mood Skin exam: Present: warm, dry, intact, normal color. Absent: rash Course Vital Signs 05/14/20 13:36 Temperature 97.7 F Pulse Rate 75 Respiratory 18 Rate Blood Pressure 178/68 O2 Sat by Pulse 97 Oximetry Medical Decision Making - Medical Decision Making I did reevaluate patient on several occasions he got more than 650 mL of urine out. He feels much improved. We did have a long discussion regarding options. He would prefer to go home with a leg bag has she will be traveling he is invited back to have removed or follow up with his doctor. Return parameters discussed Disposition Clinical Impression: Acute urinary retention, Arrington catheter in place Disposition: HOME SELF-CARE Condition: Good Instructions (If sedation given, give patient instructions): Urinary Retention in Men (ED), Arrington Catheter Placement and Care (ED) Is patient prescribed a controlled substance at d/c from ED?: No Referrals: Philippe Cortés DO [Primary Care Provider] - 1-2 days
[2020-05-14 15:08] VITALS: BP 166/77; PULSE 71; RESP 17; TEMP 97.4
== END 2020-05-14 15:08 | disposition home or self-care (01) ==
LOC: EC 13:33
DX: R33.9 Retention of urine, unspecified (principal); Z97.8 Presence of other specified devices; E11.51 Type 2 diabetes mellitus with diabetic peripheral angiopathy without gangrene; I10 Essential (primary) hypertension; I25.2 Old myocardial infarction; Z79.84 Long term (current) use of oral hypoglycemic drugs; Z79.899 Other long term (current) drug therapy; Z88.5 Allergy status to narcotic agent; Z88.8 Allergy status to other drugs, medicaments and biological substances; Z85.51 Personal history of malignant neoplasm of bladder; Z85.22 Personal history of malignant neoplasm of nasal cavities, middle ear, and accessory sinuses; Z95.1 Presence of aortocoronary bypass graft
CPT/HCPCS: 51702; 99283

== ENCOUNTER → 2020-11-21 | Outpatient (CLI) | payer MEDICARE ==
--- NOTE | 2020-11-21 14:27 | US ---
EXAMINATION TYPE: US extremity nonvasc mass RT DATE OF EXAM: 11/21/2020 COMPARISON: US 08/02/2019 CLINICAL HISTORY: R68.89 Abnormal exam,R thigh lesion, O91.10. Large, complex cystic area visualized measuring 11.8 x 4.0 x 5.0 cm. This area was visualized 019 and appeared more cystic at that time and measured 7.3 x 3.5 x 7.2 cm IMPRESSION: Enlarging nonspecific complex cystic lesion of the right thigh. The findings could refle ct hematoma or seroma. Infected collection or cystic neoplasm not excluded. Clinical correlation advi sed.
== END | disposition home or self-care (01) ==
LOC: RADUSWWP 13:18
PROVIDERS: ATTEND Internal Medicine Hematology & Oncology
DX: R22.41 Localized swelling, mass and lump, right lower limb (principal); C91.10 Chronic lymphocytic leukemia of B-cell type not having achieved remission